=== PATIENT | female | born 1985 | race African-American/Black ===

== ENCOUNTER 2016-05-01 14:30 | Inpatient (IN) | payer BC ==
[~2016-05-01] VITALS: Ht 170.2 cm; Wt 90.7 kg
[~2016-05-01 14:30] MED LIST: AMLODIPINE-ATO1 EAC1 ORAL; NKM; NS Irrig 1000ml ONE; Sterile Water Irrig 1000ml IRRIG ONE
[2016-05-01] MEDS ORDERED: CHLOROPHYLL PO (14:48)
[2016-05-01] MEDS ORDERED: MULTIVITAMINS1 EAC2 ORAL (14:48)
--- NOTE | 2016-05-01 14:55 | Emergency Room Report ---
History of Present Illness General Chief Complaint: Hidradenitis Source: Patient Present Illness [facility] The patient is a 30-year-old female who presented after having increased wound drainage from her surgical site. The patient previous history of hidradenitis suppurativa patient was noted to have a prior surgery on April 03. Patient had noted increased drainage to the right side of her wound. The patient's left side of her wound subsequently open. Patient denied any fever. She reported having moderate pain. She had denies any recent antibiotic use. Allergies: Coded Allergies: FISH CONTAINING PRODUCTS (Verified Allergy, Intermediate, rash, 04/06/16) Uncoded Allergies: Tape (Adverse Reaction, Intermediate, Blisters , 05/01/16) Patient stated she gets Blisteres for any tape used for dressing. Patient History Past Medical History: see triage record Reviewed Nursing Documentation: PMH: Agreed, PSxH: Agreed Nursing Documentation-PMH Hx Cardiac Problems: No Hx Cancer: No Hx Gastrointestinal Problems: No Hx Neurological Problems: No Review of Systems All Other Systems: negative except mentioned in HPI Physical Exam Sp02 EP Interpretation: reviewed, normal General Appearance: normal inspection, well appearing, no apparent distress, alert, GCS 15, non-toxic Head: normocephalic, atraumatic ENT: normal ENT inspection, hearing grossly normal, normal voice Neck: normal inspection, full range of motion, supple, no bony tend Respiratory: normal inspection, lungs clear, normal breath sounds, no respiratory distress, no retraction, no wheezing Cardiovascular #1: regular rate, rhythm, no edema Gastrointestinal: normal inspection, normal bowel sounds, non tender, soft, no guarding, no hernia Genitourinary: no CVA tenderness Musculoskeletal: back normal, normal range of motion, swelling - left upper extremity Neurologic: normal inspection, alert, oriented x3, responsive, plastic mould maker III-XII nml as tested, speech normal Psychiatric: normal inspection, judgement/insight normal, mood/affect normal Skin: no rash, other - open wound to inguinal area Medical Decision Making Diagnostic Impression: Primary Impression: Hidradenitis suppurativa ER Course The patient presented for hidradenitis. Differential diagnosis included tape allergy, seroma, wound infection among others. Because of complexity of patient's case laboratory testing and imaging studies were ordered. The patient was noted to have an open wound which likely would require debridement and revision. The patient was noted to have a recent EKG and chest x-ray.Laboratory testing was unremarkable. The patient was discussed with who is covering for Dr. Gallardo for inpatient management. Labs Test 05/01/16 13:05 Urine HCG, Qualitative Negative Status: unchanged Disposition: ADMITTED INPATIENT Condition: Lemuel Deluna May 01, 2016 14:55
[2016-05-01] MEDS ORDERED: Morphine Sulfate 2mg/ml Inj IVP PRN (16:15)
--- NOTE | 2016-05-01 16:23 | History & Physical ---
History and Physical History & Physicial History of Present Illness Date patient seen: Apr 02, 2016 Reason for Hospitalization: Skin Rash/Abscess HPI 30 y/o AA female from [place] with hx of hidradenitis, presents with acute onset of pain in the L axillary region, not well controlled at home. No fevers/ chills. Failed multiple outpt abx. Has had breast aug in 2012 without complications. Does sessions with PT, no chest pain or dyspnea. No significant personal medical history She presents after having increased wound drainage from her L axillary surgical site. The patient previous history of hidradenitis suppurativa patient was noted to have a prior surgery on April 03. Patient had noted increased drainage to the right side of her wound. The patient's left side of her wound subsequently open. Patient denied any fever. She reported having moderate pain. She had denies any recent antibiotic use. Also of note, pt has not been moving her LUE and has developed swelling and pain. Allergies: Coded Allergies: No Known Allergies (Unverified , 04/02/16) History Provided By: Patient Healthcare decision maker Resuscitation status Advanced Directive on File Past Medical/Surgical History: (1) Axillary abscess Family History: Patient reports no known family medical history. Social History: (1) No significant social history ROS Review of Systems Constitutional: Denies: chills, fever, malaise, no symptoms, other, see HPI, sweats, weakness Eye: Denies: acuity changes, blurred vision, discharge, double vision, eye pain , no symptoms, nose congestion, nose pain, other, see HPI, tearing ENT: Denies: ear discharge, ear pain, hearing loss, mouth pain, nasal discharge , no symptoms, nose congestion, nose pain, other, see HPI, throat pain, throat swelling Respiratory: Denies: CONTE, cough, no symptoms, orthopnea, other, see HPI, shortness of breath, sputum, stridor, wheezing Cardiovascular: Denies: PND, chest pain, edema, no symptoms, other, palpitations, see HPI, syncope Gastrointestinal: Denies: abdominal pain, constipation, diarrhea, hematemesis, melena, nausea, no symptoms, other, see HPI, vomiting Genitourinary: Denies: discharge, dysuria, frequency, hematuria, incontinence, no symptoms, other, pain, retention, see HPI, urgency, vag bleed/dc Musculoskeletal: Reports: other - bilateral axillary pain Skin: Denies: change in color, change in hair/nails, dryness, lesions, no symptoms, other, rash, see HPI Psychiatric: Denies: HI, SI, anxiety, depressed feelings, emotional problems, hallucinations, no symptoms, other, prior hx, see HPI Neurological: Denies: dizziness, focal weakness, headache, no symptoms, numbness, other, paresthesia, see HPI, seizure, syncope, tingling, tremors Endocrine: Denies: excessive sweating, flushing, increased thirst, increased urine, intolerance to temperature, no symptoms, other, see HPI, unexplained weight loss Hematologic/Lymphatic: Denies: anemia, blood clots, diathesis, easy bleeding, easy bruising, no symptoms, other, see HPI, swollen glands Physical Exam Physical Exam Physical Exam Narrative General: alert, cooperative, no distress, appears stated age Head: normocephalic, without obvious abnormality, atraumatic Eyes: conjunctivae/corneas clear. PERRL, EOM's intact Throat: lips, mucosa, and tongue normal. MMM Neck: supple, symmetrical, trachea midline, and no JVD Lungs: clear to auscultation bilaterally Heart: regular rate and rhythm, S1, S2 normal, no murmur, click, rub or gallop Abdomen: soft, non-tender, non-distended, bowel sounds normal; no masses or organomegaly Extremities: extremities normal, atraumatic, no cyanosis; +edema of LUE Pulses: 2+ and symmetric Skin: skin color, texture, turgor normal; no rashes or lesions; axillary wound open with minimal drainage Neurologic: grossly normal, no focal deficits Last 24 Hour Vital Signs Date Time Temp Pulse Resp B/P Pulse Ox O2 Delivery O2 Flow Rate FiO2 04/02/16 17:06 98.2 83 19 116/80 98 Room Air Laboratory Tests Test 04/02/16 17:30 04/02/16 17:50 White Blood Count 8.8K/UL (4.8-10.8) Red Blood Count 4.46M/UL (4.20-5.40) Hemoglobin 13.0G/DL (12.0-16.0) Hematocrit 38.8% (37.0-47.0) Mean Corpuscular Volume 87FL (80-99) Mean Corpuscular Hemoglobin 29.1PG (27.0-31.0) Mean Corpuscular Hemoglobin Concent 33.4G/DL (32.0-36.0) Red Cell Distribution Width 12.7% (11.6-14.8) Platelet Count 346K/UL (150-450) Mean Platelet Volume 9.0FL (6.5-10.1) Neutrophils (%) (Auto) 45.1% (45.0-75.0) Lymphocytes (%) (Auto) 42.3% (20.0-45.0) Monocytes (%) (Auto) 6.6% (1.0-10.0) Eosinophils (%) (Auto) 4.5% (0.0-3.0) H Basophils (%) (Auto) 1.5% (0.0-2.0) Prothrombin Time Pending Prothromb Time International Ratio Pending Activated Partial Thromboplast Time Pending Sodium Level Pending Potassium Level Pending Chloride Level Pending Carbon Dioxide Level Pending Blood Urea Nitrogen Pending Creatinine Pending Estimat Glomerular Filtration Rate Pending Glucose Level Pending Calcium Level Pending Height (Feet): 5 Height (Inches): 7.00 Weight (Pounds): 208 Assessment/Plan Assessment/Plan Problem List: (1) Axillary abscess Assessment & Plan: - Admit to inpt - Pain control - Blood cx - Start IV abx -IVF - Supp care If patient is required to have surgery, based on the patient's medical history, and other available ancillary data, the patient is a LOW risk for an INTERMEDIATE risk procedure. Per the most recent ACC/AHA guidelines, the patient does not need any further cardiopulmonary testing prior to the procedure and there do not appear to be any clear medical contraindications to proceeding with the proposed procedure. (2) Lymphadema v dependent edema of LUE -Doppler u/s to r/o DVT -if neg, will use pati hose -heparin x 1 pre op resume pharm dvt ppx post op DVT ppx: SCD Farzana Kaplan M.D. May 01, 2016 16:23
[2016-05-01 16:25] LABS: MEAN CORPUSCULAR HEMOGLOBIN 27.3 PG (27.0-31.0); MEAN CORPUSCULAR HGB CONC 30.5 G/DL (32.0-36.0); MEAN CORPUSCULAR VOLUME 90 FL (80-99); MEAN PLATELET VOLUME 8.2 FL (6.5-10.1); MONOCYTES % (AUTO) 17.7 % (1.0-10.0); NEUTROPHILS % (AUTO) 47.3 % (45.0-75.0); PLATELET COUNT 397 K/UL (150-450); RED CELL DISTRIBUTION WIDTH 12.3 % (11.6-14.8); WHITE BLOOD COUNT 8.9 K/UL (4.8-10.8)
[2016-05-01 16:39] LABS: INR 1.1 (0.9-1.1); PROTHROMBIN TIME 11.5 SEC (9.30-11.50)
[2016-05-01 16:45] LABS: ANION GAP 15 (5-15); CALCIUM 9.4 mg/dL (8.6-10.2); CARBON DIOXIDE 27 mEQ/L (20-30); CHLORIDE 96 mEQ/L (98-107); CREATININE 0.8 mg/dL (0.5-0.9); GLOMERULAR FILTRATION RATE > 60 mL/min (>60); HEMOLYSIS 1; POTASSIUM 3.9 mEQ/L (3.4-4.9); SODIUM 138 mEQ/L (135-145)
[2016-05-01 18:25] VITALS: BP 131/90
[2016-05-01] MEDS ORDERED: D5 1/2NS 1,000 ML IV SCH (18:30)
[2016-05-01] MEDS ORDERED: ceFAZolin 1gm/50ml Premix 50 ML IV SCH (19:00)
[2016-05-01] MEDS: Norco 5mg/325mg tab ORAL SCH ×2 (20:13→21:00)
[2016-05-01] MEDS: Heparin 5000 units/ml inj SUBQ SCH (21:00)
[2016-05-01] MEDS: Docusate 100mg cap ORAL SCH (21:00)
[2016-05-02] VITALS (16 sets, daily range): BP systolic 114–155; BP diastolic 56–100
[2016-05-02] MEDS: Norco 5mg/325mg tab ORAL SCH ×6 (01:00→21:22)
[2016-05-02] MEDS: D5 1/2NS 1,000 ML IV SCH ×2 (06:39→21:20)
[2016-05-02] MEDS: Docusate 100mg cap ORAL SCH ×2 (09:00→21:22)
[2016-05-02] MEDS: Heparin 5000 units/ml inj SUBQ SCH ×2 (09:00→21:25)
[2016-05-02] MEDS ORDERED: EPINEPHrine 1mg/1ml Amp ONE (09:51)
[2016-05-02] MEDS ORDERED: Lidocaine 1% 10mg/ml/Epi 0.005mg/ml 30ml vial INJ ONE ×3 (09:51→14:28)
[2016-05-02] MEDS ORDERED: Bacitracin 50000 Units Vial ONE ×2 (09:51→13:16)
[2016-05-02] MEDS ORDERED: Propofol 10mg/ml 20ml IV ONE (11:21)
--- NOTE | 2016-05-02 12:06 | Pre-Procedure Note/Attestation ---
Pre-Procedure Note/Attestation Complete Prior to Procedure Planned Procedure: bilateral Procedure Narrative: Bilateral axillary debridement and flap closure Attestation I attest that I discussed the nature of the procedure; its benefits; risks and complications; and alternatives (and the risks and benefits of such alternatives ), prior to the procedure, with the patient (or the patient's legal sales representative printing). I attest that, if there was a reasonable possibility of needing a blood transfusion, the patient (or the patient's legal sales representative printing) was given the [facility] standardized written summary, pursuant to the [place] Blood Safety Act ([place] Health and Safety Code # 1645, as amended). I attest that I re-evaluated the patient just prior to the surgery and that there has been no change in the patient's H&P, except as documented below: XIMENA WEIR May 02, 2016 12:06
--- NOTE | 2016-05-02 12:07 | Operative Note - PDOC ---
Operative Note Operative Note Pre-op Diagnosis: Open bilateral axillary wounds Procedure: Debridement of bilateral axillary wounds and flap reclosure Post-op Diagnosis: same as pre-op Surgeon: Senthil Cement Finisher Apprentice: Daysi Specimen: yes Complications: none Condition: stable Estimated Blood Loss: minimal Drains: none Implant(s) used?: No XIMENA WEIR May 02, 2016 12:07
[2016-05-02] MEDS ORDERED: Rate Change PCA 1 Each MISC PRN ×2 (12:15→14:00)
[2016-05-02] MEDS ORDERED: DiphenhydrAMINE 50mg/ml Inj IVP PRN ×3 (12:15→14:00)
[2016-05-02] MEDS ORDERED: PCA HYDROmorphone 1mg/ml 30 ML IV PRN (12:15)
[2016-05-02] MEDS ORDERED: Zolpidem 5mg tab ORAL PRN (12:15)
--- NOTE | 2016-05-02 13:42 | Anethesia Preoperative Eval ---
Anesthesia Pre-op PMH/ROS General Date of Evaluation: May 02, 2016 Time of Evaluation: 12:38 Anesthesiologist: Nimco ASA Score: ASA 2 Mallampati Score Class I : Soft palate, uvula, fauces, pillars visible Class II: Soft palate, uvula, fauces visible Class III: Soft palate, base of uvula visible Class IV: Only hard plate visible Mallampati Classification: Class II Surgeon: Senthil Diagnosis: Recurreny axillary hydradenitis Surgical Procedure: Debridement of bilateral axillary wounds Anesthesia History: none Family History: no anesthesia problems Allergies: Coded Allergies: FISH CONTAINING PRODUCTS (Verified Allergy, Intermediate, rash, 04/06/16) Uncoded Allergies: Tape (Adverse Reaction, Intermediate, Blisters , 05/01/16) Patient stated she gets Blisteres for any tape used for dressing. Medications: see eMAR Past Medical History Cardiovascular: Denies: CAD, HTN, MT, arrhythmia, other, valve dz Pulmonary: Denies: COPD, MENDEZ, asthma, other Gastrointestinal/Genitourinary: Reports: GERD - mild, Denies: CRI, ESRD, other Neurologic/Psychiatric: Reports: depression/anxiety, Denies: CVA, TIA, dementia, other Endocrine: Denies: DM, hypothyroidism, other, steroids HEENT: Denies: [place] (L), [place] (R), cataract (L), cataract (R), glaucoma, other Hematology/Immune: Denies: DVT, anemia, bleeding disorder, other Musculoskeletal/Integumentary: Denies: DDD, DJD, OA, RA, edema, other Other: other - overweight PMH Narrative: as above PSxH Narrative: multiple Sx for HS treatment Anesthesia Pre-op Phys. Exam Physician Exam Last Vital Signs Date Time Temp Pulse Resp B/P Pulse Ox O2 Delivery O2 Flow Rate FiO2 05/02/16 08:00 97.2 92 18 115/73 96 Room Air Constitutional: NAD Neurologic: CN 2-12 intact Cardiovascular: RRR, no M/R/G Respiratory: CTA Gastrointestinal: S/NT/ND Airway Exam Mallampati Score: Class II MO: full Neck: Flexible ROM: full Teeth: intact Dentures: no lower, no upper Anesthesia Pre-op A/P Labs Hematology Test 05/01/16 16:00 White Blood Count 8.9 K/UL (4.8-10.8) Red Blood Count 4.20 M/UL (4.20-5.40) Hemoglobin 11.5 G/DL (12.0-16.0) L Hematocrit 37.6 % (37.0-47.0) Mean Corpuscular Volume 90 FL (80-99) Mean Corpuscular Hemoglobin 27.3 PG (27.0-31.0) Mean Corpuscular Hemoglobin Concent 30.5 G/DL (32.0-36.0) L Red Cell Distribution Width 12.3 % (11.6-14.8) Platelet Count 397 K/UL (150-450) Mean Platelet Volume 8.2 FL (6.5-10.1) Neutrophils (%) (Auto) 47.3 % (45.0-75.0) Lymphocytes (%) (Auto) 29.0 % (20.0-45.0) Monocytes (%) (Auto) 17.7 % (1.0-10.0) H Eosinophils (%) (Auto) 3.0 % (0.0-3.0) Basophils (%) (Auto) 3.0 % (0.0-2.0) H Coagulation Test 05/01/16 16:00 Prothrombin Time 11.5 SEC (9.30-11.50) Prothromb Time International Ratio 1.1 (0.9-1.1) Activated Partial Thromboplast Time 31 SEC (23-33) Chemistry Test 05/01/16 16:00 Sodium Level 138 mEQ/L (135-145) Potassium Level 3.9 mEQ/L (3.4-4.9) Chloride Level 96 mEQ/L (98-107) L Carbon Dioxide Level 27 mEQ/L (20-30) Anion Gap 15 (5-15) Blood Urea Nitrogen 6 mg/dL (7-23) L Creatinine 0.8 mg/dL (0.5-0.9) Estimat Glomerular Filtration Rate > 60 mL/min (>60) Glucose Level 96 mg/dL (74-106) Calcium Level 9.4 mg/dL (8.6-10.2) Risk Assessment & Plan Assessment: ASA 2 Plan: GA with LMA PONV prevention Status Change Before Surgery: No Pre-Antibiotics Drug: Ancef 1 gr. Given Within 1 Hr of Incision: Yes Time Given: 13:10 LIZ LAIRD M.D. May 02, 2016 13:42
[2016-05-02] MEDS ORDERED: LR 1000ml 1,000 ML IVLG SCH (13:43)
[2016-05-02] MEDS ORDERED: Morphine Sulfate 2mg/ml Inj IVP PRN ×2 (13:45→14:00)
[2016-05-02] MEDS ORDERED: Meperidine 25mg/ml Inj IV PRN (13:45)
[2016-05-02] MEDS ORDERED: Ketorolac 30mg Inj IV PRN (13:45)
[2016-05-02] MEDS ORDERED: Metoclopramide 10mg/2ml Inj IVP PRN (13:45)
[2016-05-02] MEDS ORDERED: Midazolam 2mg/2ml Inj IVP PRN (13:45)
[2016-05-02] MEDS ORDERED: fentaNYL 100 mcg/2 mL IV PRN (13:45)
[2016-05-02] MEDS ORDERED: Naloxone 0.4mg/ml Inj IVP PRN (14:00)
[2016-05-02] MEDS ORDERED: PCA shift volume MISC SCH (15:00)
--- NOTE | 2016-05-02 15:22 | Immediate Post-Op Evaluation ---
Immediate Post-Op Evalulation Immediate Post-Op Evalulation Procedure: Bilateral axillary wounds debridement Date of Evaluation: May 02, 2016 Time of Evaluation: 15:19 IV Fluids: 1100 Blood Products: none Estimated Blood Loss: 50 Urinary Output: n0ne Blood Pressure Systolic: 132 Blood Pressure Diastolic: 69 Pulse Rate: 88 Respiratory Rate: 20 O2 Sat by Pulse Oximetry: 99 Temperature (Fahrenheit): 97.2 Pain Score (1-10): 2 Nausea: No Vomiting: No Complications none Patient Status: reacts, patent, none Hydration Status: adequate LIZ LAIRD M.D. May 02, 2016 15:22
[2016-05-02] MEDS: PCA Morphine 1mg/ml 30 ML IV PRN (15:43)
[2016-05-02] MEDS: PCA shift volume MISC SCH ×2 (16:15→23:26)
[2016-05-02] MEDS ORDERED: D5 1/2NS 1000ml IV ONE (17:27)
[2016-05-02] MEDS ORDERED: Tubing IV Secondary IV ONE (17:27)
--- NOTE | 2016-05-02 19:18 | General Progress Note ---
Assessment/Plan Problem List: (1) Swelling of left upper extremity ICD Codes: M79.89 - Other specified soft tissue disorders SNOMED: 164103863 (2) Axillary abscess ICD Codes: L02.419 - Cutaneous abscess of limb, unspecified SNOMED: 80632112 (3) Hidradenitis suppurativa ICD Codes: L73.2 - Hidradenitis suppurativa SNOMED: 88899555 Status: progressing Assessment/Plan - Admit to inpt s/p Debridement of bilateral axillary wounds and flap reclosure, POD 0 - Pain control - Blood cx - Start IV abx -IVF - Supp care Subjective Date patient seen: May 02, 2016 Time patient seen: 19:17 Allergies: Coded Allergies: FISH CONTAINING PRODUCTS (Verified Allergy, Intermediate, rash, 04/06/16) Uncoded Allergies: Tape (Adverse Reaction, Intermediate, Blisters , 05/01/16) Patient stated she gets Blisteres for any tape used for dressing. Subjective no acute events o/n Objective Last 24 Hour Vital Signs Date Time Temp Pulse Resp B/P Pulse Ox O2 Delivery O2 Flow Rate FiO2 05/02/16 16:45 16 05/02/16 16:30 16 05/02/16 16:15 97.0 89 20 145/70 100 Nasal Cannula 2.0 05/02/16 16:15 20 05/02/16 16:00 88 20 143/71 100 Nasal Cannula 2.0 05/02/16 16:00 20 05/02/16 15:55 97.2 05/02/16 15:43 20 05/02/16 15:43 86 20 150/77 100 Simple Mask 8.0 05/02/16 15:24 86 20 143/64 100 Simple Mask 8.0 05/02/16 15:22 88 20 99 05/02/16 15:19 85 20 132/69 100 Simple Mask 8.0 05/02/16 15:14 97.8 86 20 134/65 100 Simple Mask 8.0 05/02/16 08:00 97.2 92 18 115/73 96 Room Air 05/02/16 00:00 97.7 83 16 123/58 99 Room Air 05/01/16 21:12 98.3 Intake and Output 05/01/16 05/02/16 19:00 07:00 # Voids 1 1 # Bowel Movements 1 Height (Feet): 5 Height (Inches): 7.00 Weight (Pounds): 200 Objective Physical Exam Physical Exam Narrative General: alert, cooperative, no distress, appears stated age Head: normocephalic, without obvious abnormality, atraumatic Eyes: conjunctivae/corneas clear. PERRL, EOM's intact Throat: lips, mucosa, and tongue normal. MMM Neck: supple, symmetrical, trachea midline, and no JVD Lungs: clear to auscultation bilaterally Heart: regular rate and rhythm, S1, S2 normal, no murmur, click, rub or gallop Abdomen: soft, non-tender, non-distended, bowel sounds normal; no masses or organomegaly Extremities: extremities normal, atraumatic, no cyanosis; +edema of LUE Pulses: 2+ and symmetric Skin: skin color, texture, turgor normal; no rashes or lesions; L axillary wound c/d/i Neurologic: grossly normal, no focal deficits Farzana Kaplan M.D. May 02, 2016 19:18
--- NOTE | 2016-05-02 20:17 | Consultation ---
DATE OF CONSULTATION: 05/02/2016 REASON FOR THE CONSULTATION: Postoperative wound dehiscence. HISTORY OF PRESENT ILLNESS: This is a 30-year-old, female, who is 3 weeks postoperative from bilateral axillary reconstruction who presented to the emergency room with pain and drainage and wound dehiscence in both axillae. She presented with no fevers but significant amount of pain and drainage. PAST MEDICAL HISTORY: Significant for hydradenitis. PAST SURGICAL HISTORY: Significant for recent debridement and reconstruction. PHYSICAL EXAMINATION: GENERAL: The patient is alert and oriented x3. HEART: Regular rate and rhythm. ABDOMEN: Soft, nontender, and nondistended. Examination the chest and trunk reveals intact thoracodorsal artery flaps however they had dehisced on both sides with open wounds around the flap and both axillae ASSESSMENT AND PLAN: This is a 30-year-old female, who is two weeks postoperative from bilateral axillary reconstruction with thoracodorsal artery flaps which have dehisced. She was admitted by the medical team, started on IV antibiotics, and will be taken to the operating room today for debridement and flap reelevation however given the level of the wound dehiscence and probable likely to have an infection or colonization of the wound, the wound will be debrided but not closed. We will plan on three to five days of dressing changes prior to definitive wound closure. She understands the risks and benefits of this plan and will be taken to the operating room today. Triny Ndiaye M.D. DR: Gustavo JOB#: [id number] CC:
[2016-05-02] MEDS ORDERED: Heparin 5000 units/ml inj SUBQ SCH (21:00)
--- NOTE | 2016-05-02 21:27 | Operative Note - Dictated ---
DATE OF OPERATION: 05/02/2016 PREOPERATIVE DIAGNOSIS: Bilateral axillary wound dehiscence. POSTOPERATIVE DIAGNOSIS: Bilateral axillary wound dehiscence. PROCEDURES: 1. Right axillary wound debridement. 2. Elevation of a posterior chest wall flap for staged closure of right axillary wound. 3. Elevation of a lateral chest wall flap for staged closure of the axillary wound. 4. Reelevation of previously raised thoracodorsal artery flap. 5. Left axillary wound debridement. 6. Elevation of a posterior chest wall flap for staged closure of left axillary wound. 7. Elevation of a lateral chest wall flap for staged closure of left axillary wound. 8. Reelevation of previously raised thoracodorsal artery flap. SURGEON: Triny Ndiaye M.D. SHIPPING WEIGHER: Maggie Tavarez M.D. ANESTHESIA: General. COMPLICATIONS: None. EBL: 50 mL. DRAINS: None. DISPOSITION: Stable to the recovery room. INDICATIONS FOR SURGERY: This is a 30-year-old female, who is three weeks postoperative from bilateral axillary reconstruction and was doing well. However, noticed that her wound had been slowly opening and ultimately had a significant dehiscence for which she presented to the emergency room. She was seen by me and I felt that she was an appropriate candidate for debridement, IV antibiotics, and staged closure of her wounds. She understood the risks and benefits of the plan and understood that she would require more than one operation to achieve resolution of her wound. DETAILS OF THE OPERATION: The patient was brought to the operating room and laid supine on the operating room table. Her chest and bilateral axilla were prepped and draped in a sterile and usual fashion. We first began on the left side. All the previous usha and sutures were removed. The wound was completely opened and we began by first debriding some of the scar tissue and nonviable granulation tissue in the wound bed. Once this was done, the wound was then copiously irrigated with pulse lavage. We noticed that there was significant amount of swelling and that needed to be reelevation of flaps to allow for staged closure of this wound. As such, we first began by elevating the posterior chest wall flap that was elevated at the level just over the latissimus muscle fascia with proximal and distal incisions made to fully mobilize the flap and this was based off of random perforators of the intercostal arteries. In a similar fashion, the lateral chest wall flap was elevated with proximal distal incisions made. This again was dissected over the latissimus muscle as well as over the ribs to fully mobilize the flap and allow for staged closure of the wound. The thoracodorsal artery flap that had been previously raised was brought down to the wound and so this had to be reelevated and re-released to allow for full mobility of the flap. With this done, the decision was made given the level of dehiscence and likely infection, but the wound was not amenable to definitive closure, despite the flap elevation. As such following copious irrigation and hemostasis, the wound was partially closed. The donor site for the thoracodorsal artery flap was closed with usha. The thoracodorsal artery flap itself was stapled to the edge of the medial arm and inferiorly was left open and packed with wet-to-dry dressing. In a similar fashion, the contralateral wound was addressed by debriding the edges of the wound as well as some of the nonviable tissues in the wound bed. The thoracodorsal artery flap had to be reelevated down to its base and in a similar fashion, was done on the contralateral side. A posterior chest wall flap was elevated at the level of the latissimus muscle fascia with proximal and distal incisions made to fully mobilize the flap. A lateral chest wall flap was also elevated at the level of the platysmas muscle and ribs to fully mobilize it and in a similar fashion to the contralateral side. Once hemostasis was achieved and copious irrigation was done, the wound was partially closed with usha within the inferior area and left open below the thoracodorsal artery flap. PLAN: The plan will be to bring the patient back to the operating room for an intraoperative dressing change in 48 hours followed by definitive closure of the wound on 05/07/2015. Triny Ndiaye M.D. DR: ARLEEN JOB#: [id number] CC:
[2016-05-03] VITALS: BP 110/65
[2016-05-03] MEDS: Norco 5mg/325mg tab ORAL SCH ×6 (00:08→21:00)
[2016-05-03 04:00] VITALS: BP 129/72
[2016-05-03] MEDS: D5 1/2NS 1,000 ML IV SCH (04:50)
[2016-05-03] MEDS: PCA shift volume MISC SCH ×3 (07:13→23:00)
[2016-05-03 08:00] VITALS: BP 140/76
--- NOTE | 2016-05-03 08:33 | General Progress Note ---
Progress Note Progress Note Pt seen and examined. POD # 1 from debridement and partial reclosure of axillary wounds. Doing well. AVSS. Cultures sent from OR. Dressings intact. Plan for dressing changes in OR in AM. Plan: 1. NPO after MN and consent. 2. Will give the wounds more time before definitive closure on Saturday. Ximena Weir M.D. XIMENA WEIR May 03, 2016 08:33
--- NOTE | 2016-05-03 09:16 | 48 Hour Post Anesthesia Eval ---
Post Anesthesia Evaluation Procedure: Bilateral axillary wounds debridement Date of Evaluation: May 03, 2016 Time of Evaluation: 06:36 Blood Pressure Systolic: 129 0: 72 Pulse Rate: 95 Respiratory Rate: 16 Temperature (Fahrenheit): 98.6 O2 Sat by Pulse Oximetry: 98 Airway: patent Nausea: No Vomiting: No Pain Intensity: 2 Hydration Status: adequate Cardiopulmonary Status: Stable Mental Status/LOC: patient returned to baseline Follow-up Care/Observations: 0 Post-Anesthesia Complications: 0 Follow-up care needed: N/A Kyler Lane MD May 03, 2016 09:16
[2016-05-03] MEDS: Docusate 100mg cap ORAL SCH ×2 (09:25→20:40)
[2016-05-03] MEDS: Heparin 5000 units/ml inj SUBQ SCH ×2 (09:37→20:42)
[2016-05-03 11:22] VITALS: BP 127/56
[2016-05-03 16:00] VITALS: BP 153/109
--- NOTE | 2016-05-03 19:36 | General Progress Note ---
Assessment/Plan Problem List: (1) Swelling of left upper extremity ICD Codes: M79.89 - Other specified soft tissue disorders SNOMED: 285281676 (2) Axillary abscess ICD Codes: L02.419 - Cutaneous abscess of limb, unspecified SNOMED: 26681101 (3) Hidradenitis suppurativa ICD Codes: L73.2 - Hidradenitis suppurativa SNOMED: 46053845 Assessment/Plan - Admit to inpt s/p Debridement of bilateral axillary wounds and flap reclosure, POD 1 - Pain control - Blood cx - Start IV abx -IVF - Supp care Subjective Allergies: Coded Allergies: FISH CONTAINING PRODUCTS (Verified Allergy, Intermediate, rash, 04/06/16) Uncoded Allergies: Tape (Adverse Reaction, Intermediate, Blisters , 05/01/16) Patient stated she gets Blisteres for any tape used for dressing. Subjective no acute events o/n Objective Last 24 Hour Vital Signs Date Time Temp Pulse Resp B/P Pulse Ox O2 Delivery O2 Flow Rate FiO2 05/03/16 12:10 98.6 05/03/16 12:00 18 05/03/16 11:22 113 18 127/56 94 Room Air 05/03/16 09:16 95 16 98 05/03/16 08:00 18 05/03/16 08:00 99.5 112 18 140/76 96 Room Air 05/03/16 04:00 18 05/03/16 04:00 97.4 95 18 129/72 98 Room Air 05/03/16 00:00 18 05/03/16 00:00 97.8 98 18 110/65 100 Room Air 05/02/16 20:30 98.2 106 16 118/67 100 Room Air 05/02/16 20:00 16 Intake and Output 05/02/16 05/03/16 19:00 07:00 Intake Total 1100 ml 960 ml Output Total 50 ml 400 ml Balance 1050 ml 560 ml Intake Oral 360 ml IV Total 1100 ml 600 ml Output Urine Total 400 ml Estimated Blood Loss 50 ml # Voids 1 Height (Feet): 5 Height (Inches): 7.00 Weight (Pounds): 200 Objective Physical Exam Physical Exam Narrative General: alert, cooperative, no distress, appears stated age Head: normocephalic, without obvious abnormality, atraumatic Eyes: conjunctivae/corneas clear. PERRL, EOM's intact Throat: lips, mucosa, and tongue normal. MMM Neck: supple, symmetrical, trachea midline, and no JVD Lungs: clear to auscultation bilaterally Heart: regular rate and rhythm, S1, S2 normal, no murmur, click, rub or gallop Abdomen: soft, non-tender, non-distended, bowel sounds normal; no masses or organomegaly Extremities: extremities normal, atraumatic, no cyanosis; +edema of LUE Pulses: 2+ and symmetric Skin: skin color, texture, turgor normal; no rashes or lesions; L axillary wound c/d/i Neurologic: grossly normal, no focal deficits Farzana Kaplan M.D. May 03, 2016 19:36
[2016-05-03 20:43] VITALS: BP 119/75
[2016-05-03 22:56] LABS: APPEARANCE,URINE CLEAR; KETONES,URINE NEGATIVE (NEGATIVE); LEUKOCYTE ESTERASE ,URINE 3+ (NEGATIVE); NITRITE,URINE NEGATIVE (NEGATIVE); PH,URINE 7 (4.5-8.0); PROTEIN,URINE NEGATIVE (NEGATIVE); UROBILINOGEN,URINE NORMAL MG/DL (0.0-1.0)
[2016-05-03 23:04] LABS: RBC,URINE 0-2 /HPF (0 - 2); SQUAMOUS EPITHELIAL CELL,UR FEW /LPF (NONE/OCC)
[2016-05-03 23:05] LABS: BACTERIA,URINE OCCASIONAL /HPF
[2016-05-04] VITALS (14 sets, daily range): BP systolic 106–148; BP diastolic 64–75
[2016-05-04] MEDS: Norco 5mg/325mg tab ORAL SCH ×4 (01:00→12:33)
[2016-05-04] MEDS: PCA shift volume MISC SCH ×3 (07:00→23:29)
[2016-05-04] MEDS: Heparin 5000 units/ml inj SUBQ SCH ×2 (08:18→20:33)
[2016-05-04] MEDS: Docusate 100mg cap ORAL SCH (08:18)
[2016-05-04] MEDS: PCA Morphine 1mg/ml 30 ML IV PRN ×2 (08:39→14:06)
[2016-05-04] MEDS ORDERED: Bacitracin 50000 Units Vial ONE (09:56)
--- NOTE | 2016-05-04 09:56 | General Progress Note ---
Assessment/Plan Problem List: (1) Swelling of left upper extremity ICD Codes: M79.89 - Other specified soft tissue disorders SNOMED: 580604995 (2) Axillary abscess ICD Codes: L02.419 - Cutaneous abscess of limb, unspecified SNOMED: 28914837 (3) Hidradenitis suppurativa ICD Codes: L73.2 - Hidradenitis suppurativa SNOMED: 93626693 Assessment/Plan - Admit to inpt s/p Debridement of bilateral axillary wounds and flap reclosure, POD 2 -to OR today for dressing change - Pain control - Blood cx - Start IV abx -IVF - Supp care Subjective Date patient seen: May 04, 2016 Time patient seen: 09:55 Allergies: Coded Allergies: FISH CONTAINING PRODUCTS (Verified Allergy, Intermediate, rash, 04/06/16) Uncoded Allergies: Tape (Adverse Reaction, Intermediate, Blisters , 05/01/16) Patient stated she gets Blisteres for any tape used for dressing. Subjective pt with subjective fever Objective Last 24 Hour Vital Signs Date Time Temp Pulse Resp B/P Pulse Ox O2 Delivery O2 Flow Rate FiO2 05/04/16 09:09 98.2 05/04/16 08:00 98.4 113 18 120/67 95 Room Air 05/04/16 08:00 19 05/04/16 04:30 98.2 94 18 106/64 94 Room Air 05/04/16 04:00 19 05/04/16 00:00 19 05/04/16 00:00 98.1 101 18 121/68 98 Room Air 05/03/16 20:43 99.7 109 18 119/75 98 Room Air 05/03/16 20:00 19 05/03/16 19:09 99.7 05/03/16 16:00 102.0 121 20 153/109 96 Room Air 05/03/16 16:00 18 05/03/16 12:10 98.6 05/03/16 12:00 18 05/03/16 11:22 113 18 127/56 94 Room Air Intake and Output 05/03/16 05/04/16 19:00 07:00 Intake Total 180 ml 240 ml Output Total 900 ml Balance 180 ml -660 ml Intake Oral 180 ml 240 ml Other 0 ml Output Urine Total 900 ml # Voids 1 3 Laboratory Tests 1/5/17 22:00: Urine Color Pale yellow, Urine Appearance Clear, Urine pH 7, Urine Specific [place] 1.005, Urine Protein Negative, Urine Glucose (UA) Negative, Urine Ketones Negative, Urine Occult Blood Negative, Urine Nitrite Negative, Urine Bilirubin Negative, Urine Urobilinogen Normal, Urine Leukocyte Esterase 3+H, Urine RBC 0-2, Urine WBC 5-10H, Urine Squamous Epithelial Cells Few, Urine Bacteria Occasional Height (Feet): 5 Height (Inches): 7.00 Weight (Pounds): 200 Objective Physical Exam Physical Exam Narrative General: alert, cooperative, no distress, appears stated age Head: normocephalic, without obvious abnormality, atraumatic Eyes: conjunctivae/corneas clear. PERRL, EOM's intact Throat: lips, mucosa, and tongue normal. MMM Neck: supple, symmetrical, trachea midline, and no JVD Lungs: clear to auscultation bilaterally Heart: regular rate and rhythm, S1, S2 normal, no murmur, click, rub or gallop Abdomen: soft, non-tender, non-distended, bowel sounds normal; no masses or organomegaly Extremities: extremities normal, atraumatic, no cyanosis; +edema of LUE Pulses: 2+ and symmetric Skin: skin color, texture, turgor normal; no rashes or lesions; L axillary wound c/d/i Neurologic: grossly normal, no focal deficits Farzana Kaplan M.D. May 04, 2016 09:56
[2016-05-04] MEDS ORDERED: Sterile Water Irrig 1000ml IRRIG ONE (11:45)
[2016-05-04] MEDS ORDERED: LR 1000ml ONE (11:45)
[2016-05-04] MEDS ORDERED: NS Irrig 1000ml ONE (11:45)
[2016-05-04] MEDS ORDERED: Midazolam 2mg/2ml Inj ONE (11:45)
[2016-05-04] MEDS ORDERED: Ketorolac 30mg Inj ONE (11:45)
[2016-05-04] MEDS ORDERED: Propofol 10mg/ml 20ml IV ONE (11:45)
[2016-05-04] MEDS ORDERED: fentaNYL 100 mcg/2 mL IV ONE (11:45)
--- NOTE | 2016-05-04 11:53 | Pre-Procedure Note/Attestation ---
Pre-Procedure Note/Attestation Complete Prior to Procedure Planned Procedure: bilateral Procedure Narrative: Bilateral axillary wound washout and dressings changes Indications for Procedure Pre-Operative Diagnosis: Open bilateral axillary wounds Attestation I attest that I discussed the nature of the procedure; its benefits; risks and complications; and alternatives (and the risks and benefits of such alternatives ), prior to the procedure, with the patient (or the patient's legal arborist representative). I attest that, if there was a reasonable possibility of needing a blood transfusion, the patient (or the patient's legal arborist representative) was given the [facility] standardized written summary, pursuant to the [place]ito [place] Blood Safety Act ([place] Health and Safety Code # 1645, as amended). I attest that I re-evaluated the patient just prior to the surgery and that there has been no change in the patient's H&P, except as documented below: XIMENA WEIR May 04, 2016 11:53
--- NOTE | 2016-05-04 11:54 | Operative Note - PDOC ---
Operative Note Operative Note Pre-op Diagnosis: Open bilateral axillary wounds Procedure: Washout of bilateral axillary wounds Post-op Diagnosis: same as pre-op Surgeon: Senthil Wardrobe Image Consultant: Daysi Specimen: yes Complications: none Condition: stable Estimated Blood Loss: minimal Drains: none Implant(s) used?: No XIMENA WEIR May 04, 2016 11:54
[2016-05-04] MEDS ORDERED: Rate Change PCA 1 Each MISC PRN ×2 (12:00→13:00)
[2016-05-04] MEDS ORDERED: PCA Morphine 1mg/ml 30 ML IV PRN (12:00)
[2016-05-04] MEDS ORDERED: Zolpidem 5mg tab ORAL PRN (12:00)
[2016-05-04] MEDS ORDERED: LR 1000ml 1,000 ML IVLG SCH (12:53)
[2016-05-04] MEDS ORDERED: Meperidine 25mg/ml Inj IV PRN (13:00)
[2016-05-04] MEDS ORDERED: Metoclopramide 10mg/2ml Inj IVP PRN (13:00)
[2016-05-04] MEDS ORDERED: fentaNYL 100 mcg/2 mL IV PRN (13:00)
[2016-05-04] MEDS ORDERED: Midazolam 2mg/2ml Inj IVP PRN (13:00)
[2016-05-04] MEDS ORDERED: Hydromorphone 0.5mg/0.5ml inj IVP PRN (13:00)
[2016-05-04] MEDS ORDERED: Naloxone 0.4mg/ml Inj IVP PRN (13:00)
[2016-05-04] MEDS ORDERED: DiphenhydrAMINE 50mg/ml Inj IVP PRN ×2 (13:00)
[2016-05-04] MEDS ORDERED: LORazepam 1mg tab ORAL PRN (13:00)
[2016-05-04] MEDS ORDERED: Ketorolac 30mg Inj IV PRN (13:00)
[2016-05-04] MEDS ORDERED: Morphine Sulfate 2mg/ml Inj IVP PRN (13:00)
--- NOTE | 2016-05-04 14:32 | Anethesia Preoperative Eval ---
Anesthesia Pre-op PMH/ROS General Date of Evaluation: May 04, 2016 Time of Evaluation: 11:44 Anesthesiologist: Nimco ASA Score: ASA 2 Mallampati Score Class I : Soft palate, uvula, fauces, pillars visible Class II: Soft palate, uvula, fauces visible Class III: Soft palate, base of uvula visible Class IV: Only hard plate visible Mallampati Classification: Class II Surgeon: Senthil Diagnosis: Recurrent Hydradenitis Surgical Procedure: Debridement and dressing change on bilateral axillary wounds Anesthesia History: none Family History: no anesthesia problems Allergies: Coded Allergies: FISH CONTAINING PRODUCTS (Verified Allergy, Intermediate, rash, 04/06/16) Uncoded Allergies: Tape (Adverse Reaction, Intermediate, Blisters , 05/01/16) Patient stated she gets Blisteres for any tape used for dressing. Past Medical History Cardiovascular: Denies: CAD, HTN, [place], arrhythmia, other, valve dz Pulmonary: Denies: COPD, MENDEZ, asthma, other Gastrointestinal/Genitourinary: Denies: CRI, ESRD, GERD, other Neurologic/Psychiatric: Reports: depression/anxiety, Denies: CVA, TIA, dementia, other Endocrine: Denies: DM, hypothyroidism, other, steroids HEENT: Denies: [place] (L), KO[place] (R), cataract (L), cataract (R), glaucoma, other Hematology/Immune: Denies: DVT, anemia, bleeding disorder, other Musculoskeletal/Integumentary: Reports: other - recurrent HS, Denies: DDD, DJD, OA, RA, edema Other: other - over weight PMH Narrative: as above PSxH Narrative: Multiple Sx for HS treatment Anesthesia Pre-op Phys. Exam Physician Exam Last Vital Signs Date Time Temp Pulse Resp B/P Pulse Ox O2 Delivery O2 Flow Rate FiO2 05/04/16 14:21 20 05/04/16 14:20 86 131/69 99 Nasal Cannula 2.0 05/04/16 13:19 97.2 Constitutional: NAD Neurologic: CN 2-12 intact Cardiovascular: RRR, no M/R/G Respiratory: CTA Gastrointestinal: S/NT/ND Airway Exam Mallampati Score: Class II MO: full Neck: flexible ROM: full Teeth: intact Dentures: no lower, no upper Anesthesia Pre-op A/P Labs see chart Risk Assessment & Plan Assessment: ASA 2 Plan: GA with LMA Status Change Before Surgery: No Pre-Antibiotics Drug: Ancef 2 gr. Given Within 1 Hr of Incision: Yes Time Given: 13:18 LIZ LAIRD M.D. May 04, 2016 14:32
--- NOTE | 2016-05-04 14:35 | Immediate Post-Op Evaluation ---
Immediate Post-Op Evalulation Immediate Post-Op Evalulation Procedure: Debridement and dressing change on bilateral axillary wounds Date of Evaluation: May 04, 2016 Time of Evaluation: 13:24 IV Fluids: 400 Blood Products: none Estimated Blood Loss: min Urinary Output: none Blood Pressure Systolic: 118 Blood Pressure Diastolic: 69 Pulse Rate: 68 Respiratory Rate: 22 O2 Sat by Pulse Oximetry: 99 Temperature (Fahrenheit): 97.8 Pain Score (1-10): 2 Complications none Patient Status: reacts, patent, none Hydration Status: adequate LIZ LAIRD M.D. May 04, 2016 14:35
[2016-05-04] MEDS ORDERED: PCA shift volume MISC SCH (15:30)
--- NOTE | 2016-05-04 16:36 | 48 Hour Post Anesthesia Eval ---
Post Anesthesia Evaluation Procedure: Debridement and dressing change on bilateral axillary wounds Date of Evaluation: May 04, 2016 Time of Evaluation: 16:34 Blood Pressure Systolic: 130 0: 69 Pulse Rate: 88 Respiratory Rate: 20 Temperature (Fahrenheit): 98.6 O2 Sat by Pulse Oximetry: 99 Airway: patent Nausea: No Vomiting: No Pain Intensity: 2 Hydration Status: adequate Cardiopulmonary Status: Stable Mental Status/LOC: patient returned to baseline Follow-up Care/Observations: 0 Post-Anesthesia Complications: 0 Follow-up care needed: N/A Kyler Lane MD May 04, 2016 16:36
[2016-05-04] MEDS: Pericolace tab ORAL SCH (17:37)
--- NOTE | 2016-05-04 18:58 | Operative Note - Dictated ---
DATE OF OPERATION: 05/04/2016 PREOPERATIVE DIAGNOSIS: Bilateral open axillary wounds. POSTOPERATIVE DIAGNOSIS: Bilateral open axillary wounds. PROCEDURES: 1. Bilateral axillary wound washout with pulse lavage. 2. Debridement of bilateral axillary wound. 3. Re-elevation of left lateral chest wall flap for partial closure of left axillary wound. SURGEON: Triny Ndiaye M.D. CAREER ADVISOR: Maggie Tavarez M.D. ANESTHESIA: General. COMPLICATIONS: None. DRAINS: None. DISPOSITION: Stable to the recovery room. INDICATIONS FOR SURGERY: This is a 30-year-old female, now who is postoperative day # 2 from debridement of bilateral axillary wounds of flap, re-inset with an open wound who is coming back to the operating room for dressing change under anesthesia with possible partial reclosures. She understood the risks and benefits of surgery and agreed to proceed. DETAILS OF THE OPERATION: The patient was brought to the operating room and laid supine on the operating table. Her bilateral axillary wounds were prepped and draped in a sterile and sterile usual fashion. We began the left side by first performing pulse lavage irrigation to the wound bed and we noted that there was no evidence of purulent drainage. The wound and the flap were healthy, however, in anticipation of eventual closure of the wound in the 72 hours, we did decide to readvance the lateral chest wall flap to appoint closer to the thoracodorsal artery flap itself and in so doing, we re-elevated the chest wall flap and tacked it down to the base of the thoracodorsal artery flap thereby reducing the dimension of the wound. This was secured in place using 2-0 Prolene sutures. The remainders of the wound that was inferior to the thoracodorsal artery flap in the left axilla was left open and this was packed. Similarly, the contralateral wound was approached with pulse lavage irrigation with the partial debridement of the thoracodorsal artery flap and this wound was smaller than the contralateral left side and following the irrigation and debridement, the wound was packed and this patient has adhesive allergy as such no tape was applied to the dressings. We wrapped her chest with a Coban dressing. The patient tolerated the procedure well. She will be brought back to the operating room in 72 hours, which is this Saturday for definitive wound closure. Triny Ndiaye M.D. DR: AYANNA JOB#: [id number] CC:
[2016-05-05] VITALS: BP 112/58
[2016-05-05] MEDS: PCA shift volume MISC SCH ×3 (07:00→23:00)
[2016-05-05 08:00] VITALS: BP 116/75
[2016-05-05] MEDS: Pericolace tab ORAL SCH ×2 (09:18→17:48)
[2016-05-05] MEDS: Heparin 5000 units/ml inj SUBQ SCH ×2 (09:19→21:00)
--- NOTE | 2016-05-05 09:48 | General Progress Note ---
Progress Note Progress Note Pt seen and examined. POD #1 from washout of wounds and flap partial reclosure. Doing well and pain is well controlled. Axillary wound cultures grew out Ecoli. Plan to OR on Saturday for wound closure. XIMENA Rojas MD May 05, 2016 09:48
--- NOTE | 2016-05-05 10:07 | General Progress Note ---
Assessment/Plan Problem List: (1) Swelling of left upper extremity ICD Codes: M79.89 - Other specified soft tissue disorders SNOMED: 839309225 (2) Axillary abscess ICD Codes: L02.419 - Cutaneous abscess of limb, unspecified SNOMED: 33337832 (3) Hidradenitis suppurativa ICD Codes: L73.2 - Hidradenitis suppurativa SNOMED: 81854931 Assessment/Plan - Admit to inpt s/p Debridement of bilateral axillary wounds and flap reclosure, POD 3 -s/p dressing change 05/04/16 - Pain control - Blood cx ntd -tylenol -wound cx with GNR - Start IV abx; Ceftriaxone -dc IVF - Supp care Subjective Date patient seen: May 05, 2016 Time patient seen: 10:05 Allergies: Coded Allergies: FISH CONTAINING PRODUCTS (Verified Allergy, Intermediate, rash, 04/06/16) Uncoded Allergies: Tape (Adverse Reaction, Intermediate, Blisters , 05/01/16) Patient stated she gets Blisteres for any tape used for dressing. Subjective no acute events o/n Objective Last 24 Hour Vital Signs Date Time Temp Pulse Resp B/P Pulse Ox O2 Delivery O2 Flow Rate FiO2 05/05/16 04:00 18 05/05/16 00:00 18 05/05/16 00:00 98.1 107 18 112/58 96 Nasal Cannula 2.0 05/04/16 20:00 20 05/04/16 20:00 100.6 117 18 117/67 99 Nasal Cannula 2.0 05/04/16 18:14 97.7 97 20 127/64 100 Nasal Cannula 2.0 05/04/16 16:36 88 20 99 05/04/16 16:00 20 05/04/16 16:00 97.7 97 20 127/64 100 Nasal Cannula 2.0 05/04/16 15:00 97.8 05/04/16 14:45 20 05/04/16 14:35 68 22 99 05/04/16 14:27 98.6 88 20 130/69 99 Nasal Cannula 2.0 05/04/16 14:21 20 05/04/16 14:20 86 20 131/69 99 Nasal Cannula 2.0 05/04/16 14:06 20 05/04/16 14:06 86 20 133/69 99 Nasal Cannula 2.0 05/04/16 14:00 85 20 137/74 99 Nasal Cannula 2.0 05/04/16 13:45 91 20 148/75 99 Simple Mask 8.0 05/04/16 13:29 91 20 137/70 99 Simple Mask 8.0 05/04/16 13:24 90 20 133/72 99 Simple Mask 8.0 05/04/16 13:19 97.2 87 20 112/64 99 Simple Mask 8.0 Intake and Output 05/04/16 05/05/16 19:00 07:00 Intake Total 1200 ml 580 ml Balance 1200 ml 580 ml Intake Oral 300 ml 480 ml IV Total 900 ml 100 ml # Voids 2 1 Height (Feet): 5 Height (Inches): 7.00 Weight (Pounds): 200 Objective Physical Exam Physical Exam Narrative General: alert, cooperative, no distress, appears stated age Head: normocephalic, without obvious abnormality, atraumatic Eyes: conjunctivae/corneas clear. PERRL, EOM's intact Throat: lips, mucosa, and tongue normal. MMM Neck: supple, symmetrical, trachea midline, and no JVD Lungs: clear to auscultation bilaterally Heart: regular rate and rhythm, S1, S2 normal, no murmur, click, rub or gallop Abdomen: soft, non-tender, non-distended, bowel sounds normal; no masses or organomegaly Extremities: extremities normal, atraumatic, no cyanosis; +edema of LUE Pulses: 2+ and symmetric Skin: skin color, texture, turgor normal; no rashes or lesions; L axillary wound c/d/i Neurologic: grossly normal, no focal deficits Farzana Kaplan M.D. May 05, 2016 10:07
[2016-05-05 12:10] VITALS: BP 125/73
[2016-05-05] MEDS: cefTRIAXone 1 GM in D5W 50 ML IVPB SCH (13:10)
[2016-05-05] MEDS: PCA Morphine 1mg/ml 30 ML IV PRN (15:58)
[2016-05-05 16:15] VITALS: BP 112/66
[2016-05-05 20:00] VITALS: BP 130/76
[2016-05-06] VITALS: BP 117/63
[2016-05-06 04:00] VITALS: BP 118/71
[2016-05-06] MEDS: PCA shift volume MISC SCH ×2 (07:00→23:12)
[2016-05-06 08:12] VITALS: BP 126/66
[2016-05-06] MEDS: Pericolace tab ORAL SCH ×2 (10:51→16:27)
[2016-05-06] MEDS: Heparin 5000 units/ml inj SUBQ SCH ×2 (10:54→20:51)
[2016-05-06] MEDS: cefTRIAXone 1 GM in D5W 50 ML IVPB SCH (10:55)
[2016-05-06] MEDS ORDERED: Naloxone 0.4mg/ml Inj IVP PRN ×2 (15:21→17:00)
[2016-05-06] MEDS ORDERED: DiphenhydrAMINE 50mg/ml Inj IVP PRN ×2 (15:45→19:00)
[2016-05-06] MEDS ORDERED: LORazepam 1mg tab ORAL PRN ×2 (15:45→17:00)
[2016-05-06 15:51] VITALS: BP 124/71
[2016-05-06] MEDS ORDERED: Tubing IV Secondary IV ONE (16:53)
[2016-05-06] MEDS ORDERED: PCA Morphine 1mg/ml 30 ML IV PRN (17:00)
[2016-05-06] MEDS ORDERED: Morphine Sulfate 2mg/ml Inj IVP PRN (17:00)
[2016-05-06] MEDS ORDERED: Rate Change PCA 1 Each MISC PRN (17:00)
[2016-05-06] MEDS ORDERED: Morphine Sulfate 4mg/ml Inj SUBQ PRN (17:00)
[2016-05-06 20:24] VITALS: BP 120/87
[2016-05-06] MEDS ORDERED: PCA shift volume MISC SCH (23:00)
[2016-05-07] VITALS (15 sets, daily range): BP systolic 131–163; BP diastolic 56–102
[2016-05-07] MEDS: PCA shift volume MISC SCH ×3 (07:16→23:00)
[2016-05-07] MEDS: Heparin 5000 units/ml inj SUBQ SCH ×2 (08:39→21:00)
[2016-05-07] MEDS: Pericolace tab ORAL SCH (08:39)
[2016-05-07] MEDS ORDERED: Bacitracin 50000 Units Vial ONE (09:07)
[2016-05-07] MEDS ORDERED: Lidocaine 1% 10mg/ml/Epi 0.005mg/ml 30ml vial INJ ONE (09:07)
--- NOTE | 2016-05-07 09:24 | Pre-Procedure Note/Attestation ---
Pre-Procedure Note/Attestation Complete Prior to Procedure Planned Procedure: bilateral Procedure Narrative: Bilateral axillary wound closure Indications for Procedure Pre-Operative Diagnosis: Open bilateral axillary wounds Attestation I attest that I discussed the nature of the procedure; its benefits; risks and complications; and alternatives (and the risks and benefits of such alternatives ), prior to the procedure, with the patient (or the patient's legal medical office representative). I attest that, if there was a reasonable possibility of needing a blood transfusion, the patient (or the patient's legal medical office representative) was given the [facility] standardized written summary, pursuant to the [place] Blood Safety Act ([place] Health and Safety Code # 1645, as amended). I attest that I re-evaluated the patient just prior to the surgery and that there has been no change in the patient's H&P, except as documented below: XIMENA WEIR May 07, 2016 09:24
--- NOTE | 2016-05-07 09:25 | Operative Note - PDOC ---
Operative Note Operative Note Pre-op Diagnosis: Open bilateral axillary wounds Procedure: Closure of bilateral axillary wounds Post-op Diagnosis: same as pre-op Surgeon: Senthil Hot Dog Vender: Tiffanie Anesthesia: general Specimen: yes Complications: none Condition: stable Estimated Blood Loss: minimal Drains: ANITA Implant(s) used?: No XIMENA WEIR May 07, 2016 09:24
[2016-05-07] MEDS ORDERED: cefOXitin 1gm Inj ONE ×2 (09:44→09:59)
[2016-05-07] MEDS ORDERED: fentaNYL 100 mcg/2 mL IV ONE (10:00)
[2016-05-07] MEDS ORDERED: Ketorolac 30mg Inj ONE (10:00)
[2016-05-07] MEDS ORDERED: Succinylcholine 20mg/ml 10ml vial ONE (10:00)
[2016-05-07] MEDS ORDERED: LR 1000ml ONE (10:00)
[2016-05-07] MEDS ORDERED: Neostigmine 1mg/ml 10ml Inj ONE (10:00)
[2016-05-07] MEDS ORDERED: Zemuron 50mg/5ml Inj IV ONE (10:00)
[2016-05-07] MEDS ORDERED: Propofol 10mg/ml 20ml IV ONE (10:00)
[2016-05-07] MEDS ORDERED: Morphine Sulfate 10mg/ml Inj ONE (10:00)
[2016-05-07] MEDS ORDERED: Glycopyrrolate 0.2mg/ml 1ml Vial ONE (10:00)
[2016-05-07] MEDS ORDERED: Midazolam 2mg/2ml Inj ONE (10:00)
[2016-05-07] MEDS ORDERED: NS Irrig 1000ml IRRIG ONE (10:05)
[2016-05-07] MEDS ORDERED: Rate Change PCA 1 Each MISC PRN (10:30)
[2016-05-07] MEDS: cefTRIAXone 1 GM in D5W 50 ML IVPB SCH (11:00)
[2016-05-07] MEDS ORDERED: LR 1000ml 1,000 ML IVLG SCH (12:48)
--- NOTE | 2016-05-07 12:48 | Anethesia Preoperative Eval ---
Anesthesia Pre-op PMH/ROS General Date of Evaluation: May 07, 2016 Time of Evaluation: 09:48 Anesthesiologist: Nimco ASA Score: ASA 2 Mallampati Score Class I : Soft palate, uvula, fauces, pillars visible Class II: Soft palate, uvula, fauces visible Class III: Soft palate, base of uvula visible Class IV: Only hard plate visible Mallampati Classification: Class II Surgeon: Senthil Diagnosis: Recurrent hydradenitis Surgical Procedure: Bilateral axillary wounds closure Anesthesia History: none Family History: no anesthesia problems Allergies: Coded Allergies: FISH CONTAINING PRODUCTS (Verified Allergy, Intermediate, rash, 04/06/16) Uncoded Allergies: Tape (Adverse Reaction, Intermediate, Blisters , 05/01/16) Patient stated she gets Blisteres for any tape used for dressing. Medications: see eMAR Past Medical History Cardiovascular: Denies: CAD, HTN, [place], arrhythmia, other, valve dz Pulmonary: Denies: COPD, MENDEZ, asthma, other Gastrointestinal/Genitourinary: Reports: GERD, Denies: CRI, ESRD, other Neurologic/Psychiatric: Reports: depression/anxiety, Denies: CVA, TIA, dementia, other Endocrine: Denies: DM, hypothyroidism, other, steroids HEENT: Denies: [place] (L), U[place]LAK[place]ET (R), cataract (L), cataract (R), glaucoma, other Hematology/Immune: Reports: anemia, Denies: DVT, bleeding disorder, other Musculoskeletal/Integumentary: Denies: DDD, DJD, OA, RA, edema, other Other: other - overweight PMH Narrative: as above PSxH Narrative: multiple Sx for HS treatment Anesthesia Pre-op Phys. Exam Physician Exam Last Vital Signs Date Time Temp Pulse Resp B/P Pulse Ox O2 Delivery O2 Flow Rate FiO2 05/07/16 08:55 97.7 120 20 151/102 98 Room Air 05/05/16 00:00 2.0 Constitutional: NAD Neurologic: CN 2-12 intact Cardiovascular: RRR, no M/R/G Respiratory: CTA Gastrointestinal: S/NT/ND Airway Exam Mallampati Score: Class II MO: full Neck: flexible ROM: full Teeth: intact Dentures: no lower, no upper Anesthesia Pre-op A/P Labs see chart Studies Pre-op Studies: EKG Risk Assessment & Plan Assessment: ASA 2 Plan: GA with ETT Status Change Before Surgery: No Pre-Antibiotics Drug: Cefoxitin 2 gr. Given Within 1 Hr of Incision: Yes Time Given: 10:08 LIZ LAIRD M.D. May 07, 2016 12:48
[2016-05-07] MEDS ORDERED: DiphenhydrAMINE 50mg/ml Inj IVP PRN (13:00)
[2016-05-07] MEDS ORDERED: Meperidine 25mg/ml Inj IV PRN (13:00)
[2016-05-07] MEDS ORDERED: Ketorolac 30mg Inj IV PRN (13:00)
[2016-05-07] MEDS ORDERED: Midazolam 2mg/2ml Inj IVP PRN (13:00)
[2016-05-07] MEDS ORDERED: Hydromorphone 0.5mg/0.5ml inj IVP PRN (13:00)
[2016-05-07] MEDS ORDERED: fentaNYL 100 mcg/2 mL IV PRN (13:00)
[2016-05-07] MEDS ORDERED: Metoclopramide 10mg/2ml Inj IVP PRN (13:00)
[2016-05-07] MEDS ORDERED: Bacitracin Oint 15gm Tube TOPIC ONE (14:05)
--- NOTE | 2016-05-07 14:11 | Immediate Post-Op Evaluation ---
Immediate Post-Op Evalulation Immediate Post-Op Evalulation Procedure: Bilateral axillary wounds closure Date of Evaluation: May 07, 2016 Time of Evaluation: 14:10 IV Fluids: 1100 Blood Products: none Estimated Blood Loss: 50 Urinary Output: none Blood Pressure Systolic: 134 Blood Pressure Diastolic: 69 Pulse Rate: 86 Respiratory Rate: 20 O2 Sat by Pulse Oximetry: 99 Temperature (Fahrenheit): 97.8 Pain Score (1-10): 1 Nausea: No Vomiting: No Complications none Patient Status: reacts, patent, extubated, none Hydration Status: adequate LIZ LAIRD M.D. May 07, 2016 14:11
[2016-05-07] MEDS: PCA Morphine 1mg/ml 30 ML IV PRN (15:08)
--- NOTE | 2016-05-07 19:39 | General Progress Note ---
Assessment/Plan Problem List: (1) Swelling of left upper extremity ICD Codes: M79.89 - Other specified soft tissue disorders SNOMED: 585052127 (2) Axillary abscess ICD Codes: L02.419 - Cutaneous abscess of limb, unspecified SNOMED: 44411435 (3) Hidradenitis suppurativa ICD Codes: L73.2 - Hidradenitis suppurativa SNOMED: 67373990 Assessment/Plan - Admit to inpt s/p Debridement of bilateral axillary wounds and flap reclosure, POD 5 -s/p dressing change 05/04/16 -s/p wound closure 05/07/15 - Pain control - Blood cx ntd -tylenol -wound cx with GNR - Start IV abx; Ceftriaxone -dc IVF - Supp care pt af Subjective Date patient seen: May 07, 2016 Time patient seen: 19:38 Allergies: Coded Allergies: FISH CONTAINING PRODUCTS (Verified Allergy, Intermediate, rash, 04/06/16) Uncoded Allergies: Tape (Adverse Reaction, Intermediate, Blisters , 05/01/16) Patient stated she gets Blisteres for any tape used for dressing. Subjective no acute events o/n; no f/c Objective Last 24 Hour Vital Signs Date Time Temp Pulse Resp B/P Pulse Ox O2 Delivery O2 Flow Rate FiO2 05/07/16 15:46 97.6 05/07/16 15:45 97.6 05/07/16 15:35 16 05/07/16 15:25 97.6 94 15 140/74 100 Nasal Cannula 3.0 05/07/16 15:20 15 05/07/16 15:10 97 16 137/75 100 Nasal Cannula 3.0 05/07/16 15:08 14 05/07/16 14:55 101 15 141/69 100 Nasal Cannula 3.0 05/07/16 14:45 92 12 149/87 100 Simple Mask 6.0 05/07/16 14:30 96 14 160/79 100 Simple Mask 6.0 05/07/16 14:20 88 13 163/87 100 Simple Mask 6.0 05/07/16 14:11 86 20 99 05/07/16 14:10 87 11 152/83 100 Simple Mask 6.0 05/07/16 14:05 92 13 135/94 100 Simple Mask 6.0 05/07/16 14:02 98.3 101 14 163/94 100 Simple Mask 6.0 05/07/16 09:30 18 05/07/16 08:55 97.7 120 20 151/102 98 Room Air 05/07/16 08:00 18 05/07/16 04:00 18 05/07/16 00:00 18 05/06/16 20:24 99.9 105 18 120/87 98 Room Air 05/06/16 20:00 20 Intake and Output 05/06/16 05/07/16 19:00 07:00 Intake Total 220 ml 240 ml Balance 220 ml 240 ml Intake Oral 120 ml 240 ml IV Total 100 ml # Voids 2 1 # Bowel Movements 1 1 Height (Feet): 5 Height (Inches): 7.00 Weight (Pounds): 200 Objective Physical Exam Physical Exam Narrative General: alert, cooperative, no distress, appears stated age Head: normocephalic, without obvious abnormality, atraumatic Eyes: conjunctivae/corneas clear. PERRL, EOM's intact Throat: lips, mucosa, and tongue normal. MMM Neck: supple, symmetrical, trachea midline, and no JVD Lungs: clear to auscultation bilaterally Heart: regular rate and rhythm, S1, S2 normal, no murmur, click, rub or gallop Abdomen: soft, non-tender, non-distended, bowel sounds normal; no masses or organomegaly Extremities: extremities normal, atraumatic, no cyanosis; +edema of LUE Pulses: 2+ and symmetric Skin: skin color, texture, turgor normal; no rashes or lesions; L axillary wound c/d/i Neurologic: grossly normal, no focal deficits Farzana Kaplan M.D. May 07, 2016 19:39
[2016-05-07] MEDS: Docusate 100mg cap ORAL SCH (21:31)
[2016-05-08] VITALS: BP 132/79
--- NOTE | 2016-05-08 00:37 | Operative Note - Dictated ---
DATE OF OPERATION: 05/07/2016 PREOPERATIVE DIAGNOSIS: Bilateral open axillary wounds. POSTOPERATIVE DIAGNOSIS: Bilateral open axillary wounds. PROCEDURES: 1. Preparation of left axillary wound for flap closure. 2. Adjacent tissue transfer closure of axillary wound measuring 100 sq cm on the left. 3. Preparation of right axillary wound flap closure. 4. Adjacent tissue transfer closure of right axillary wound measuring 130 sq cm. SURGEON: Triny Ndiaye M.D. ROASTER SUPERVISOR: Beto Moerno M.D. ANESTHESIA: General. COMPLICATIONS: None. DRAINS: Included one ANITA size #15 on each side. EBL: 25 mL. DISPOSITION: Stable to the recovery room. INDICATIONS FOR SURGERY: This is a 30-year-old, female, who is now three days postoperative from last dressing change for an infection that she presented to the hospital for with bilateral wound dehiscence. She underwent initial debridement and washout of her wounds five days ago and 48 hours after that, underwent a repeat washout and is now ready for definitive closure of her wounds. She understands the risks and benefits of surgery and agreed to proceed. DETAILS OF THE OPERATION: The patient was brought to the operating room and laid supine on the operating room table. The bilateral axillary regions were prepped and draped in a sterile and usual fashion. We first began by elevating the flap that had been previously raised. This was the thoracodorsal flap on the left side. The flap was elevated that we noted at the donor site and needed further mobilization for closure of the donor site wound and the wound bed was debrided to prepare for flap transfer. Hemostasis was achieved. Following pulse lavage irrigation, a #15 ANITA was placed and the previously raised flap was then further mobilized with electrocautery to allow for transfer into the defect. The donor site was closed with #0 and 2-0 Vicryl sutures and the flap was inset with #0 and 2-0 Vicryl sutures as well. The size of the left axillary defect was 100 sq cm and following completion of the adjacent tissue transfer, 2-0 Prolene sutures were used to close the skin. We then turned our attention to the contralateral right axillary wound. The wound was prepared for flap transfer with debridement. The donor site was closed following irrigation and with pulse lavage and hemostasis. The donor site was closed with #0 and 2-0 Vicryl sutures. The thoracodorsal flap that had been previously elevated was further mobilized with electrocautery at its base to allow for definitive inset into the wound. In addition, we had to debride the flaps from one of its tip to allow for good fit as it was somewhat long upon transfer and so, we debrided back about 1 cm to allow for good fit. The flap was then inset using #0 and 2-0 Vicryl sutures and 2-0 Prolene sutures were used to close the skin. This thus completed the bilateral axillary wound preparation for flap transfer and adjacent tissue transfer. Triny Ndiaye M.D. DR: ARLEEN JOB#: [id number] CC:
[2016-05-08 04:00] VITALS: BP 124/75
[2016-05-08] MEDS: PCA shift volume MISC SCH ×3 (07:23→23:00)
[2016-05-08 08:00] VITALS: BP 106/69
--- NOTE | 2016-05-08 10:02 | General Progress Note ---
Progress Note Progress Note Pt seen and examined. She is doing well POD # 1 from closure of bilateral axillary wounds. Plan for HBO to be started while inpatient. 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 XIMENA Rojas MD May 08, 2016 10:02
[2016-05-08] MEDS: Docusate 100mg cap ORAL SCH ×2 (10:51→18:43)
[2016-05-08] MEDS: Heparin 5000 units/ml inj SUBQ SCH ×2 (10:55→21:00)
[2016-05-08 12:00] VITALS: BP 136/92
--- NOTE | 2016-05-08 12:04 | 48 Hour Post Anesthesia Eval ---
Post Anesthesia Evaluation Procedure: Bilateral axillary wounds closure Date of Evaluation: May 08, 2016 Time of Evaluation: 14:35 Blood Pressure Systolic: 106 0: 69 Pulse Rate: 93 Respiratory Rate: 18 Temperature (Fahrenheit): 97.9 O2 Sat by Pulse Oximetry: 97 Airway: patent Nausea: No Vomiting: No Pain Intensity: 2 If pain is > 6 Comment: Patient using [employer] appropriately Hydration Status: adequate Cardiopulmonary Status: Stable Mental Status/LOC: patient returned to baseline Follow-up Care/Observations: As per surgery Post-Anesthesia Complications: No anesthetic complication Follow-up care needed: N/A LELAND DEWEY M.D. May 08, 2016 12:04
[2016-05-08] MEDS: cefTRIAXone 1 GM in D5W 50 ML IVPB SCH (12:26)
[2016-05-08] MEDS: PCA Morphine 1mg/ml 30 ML IV PRN (15:21)
[2016-05-08 16:14] VITALS: BP 153/81
--- NOTE | 2016-05-08 16:26 | General Progress Note ---
Assessment/Plan Problem List: (1) Swelling of left upper extremity ICD Codes: M79.89 - Other specified soft tissue disorders SNOMED: 287334165 (2) Axillary abscess ICD Codes: L02.419 - Cutaneous abscess of limb, unspecified SNOMED: 04531655 (3) Hidradenitis suppurativa ICD Codes: L73.2 - Hidradenitis suppurativa SNOMED: 45889257 Assessment/Plan - Admit to inpt s/p Debridement of bilateral axillary wounds and flap reclosure, POD 6 -s/p dressing change 05/04/16 -s/p wound closure 05/07/15 - Pain control - Blood cx ntd -tylenol -wound cx with GNR - Start IV abx; Ceftriaxone -dc IVF - Supp care pt af Subjective Date patient seen: May 08, 2016 Time patient seen: 16:25 Allergies: Coded Allergies: FISH CONTAINING PRODUCTS (Verified Allergy, Intermediate, rash, 04/06/16) Uncoded Allergies: Tape (Adverse Reaction, Intermediate, Blisters , 05/01/16) Patient stated she gets Blisteres for any tape used for dressing. Subjective no acute events o/n; no f/c Objective Last 24 Hour Vital Signs Date Time Temp Pulse Resp B/P Pulse Ox O2 Delivery O2 Flow Rate FiO2 05/08/16 16:14 98.6 107 19 153/81 97 Room Air 05/08/16 12:04 93 18 97 05/08/16 12:00 20 05/08/16 12:00 97.5 105 17 136/92 98 Room Air 05/08/16 08:00 97.9 93 18 106/69 99 Room Air 05/08/16 08:00 20 05/08/16 04:00 16 05/08/16 04:00 98.2 107 18 124/75 95 Room Air 05/08/16 00:00 16 05/08/16 00:00 99.0 103 18 132/79 95 Room Air 05/07/16 23:59 16 05/07/16 20:00 98.1 112 18 137/75 98 Nasal Cannula 2.0 05/07/16 20:00 16 05/07/16 17:30 111 20 143/70 98 Nasal Cannula 2.0 05/07/16 17:00 103 20 131/69 97 Nasal Cannula 2.0 05/07/16 16:30 99 18 136/63 99 Nasal Cannula 2.0 Intake and Output 05/07/16 05/08/16 19:00 07:00 Intake Total 1350 ml 840 ml Output Total 50 ml 55 ml Balance 1300 ml 785 ml Intake Oral 840 ml IV Total 1350 ml Drainage Total 0 ml 55 ml Estimated Blood Loss 50 ml # Voids 2 Height (Feet): 5 Height (Inches): 7.00 Weight (Pounds): 200 Objective Physical Exam Physical Exam Narrative General: alert, cooperative, no distress, appears stated age Head: normocephalic, without obvious abnormality, atraumatic Eyes: conjunctivae/corneas clear. PERRL, EOM's intact Throat: lips, mucosa, and tongue normal. MMM Neck: supple, symmetrical, trachea midline, and no JVD Lungs: clear to auscultation bilaterally Heart: regular rate and rhythm, S1, S2 normal, no murmur, click, rub or gallop Abdomen: soft, non-tender, non-distended, bowel sounds normal; no masses or organomegaly Extremities: extremities normal, atraumatic, no cyanosis; +edema of LUE Pulses: 2+ and symmetric Skin: skin color, texture, turgor normal; no rashes or lesions; L axillary wound c/d/i Neurologic: grossly normal, no focal deficits Farzana Kaplan M.D. May 08, 2016 16:26
[2016-05-08 20:20] VITALS: BP 139/71
--- NOTE | 2016-05-08 20:32 | Infectious Diseases Prog Note ---
Assessment/Plan Assessment/Plan Full consult to follow: A) 1) bilateral axilla wound infection - wound dehiscence 2) s/p debridement on 05/02/16 3) s/p flap closure on 05/07/16 4) wound culture on 05/02 - polymicrobial - gram negative - e.coli, morganella , anaerobic - prevotella and enterococcus 5) difficult to tell which bacteria are pathogenic but all are potential pathogens 6) hidradenitis suppurativa P) 1) will change abx to zosyn 2) continue treatment per Dr. Castillo and Dr. Ndiaye 3) local wound care 4) d/w pt 5) thank you Subjective Allergies: Coded Allergies: FISH CONTAINING PRODUCTS (Verified Allergy, Intermediate, rash, 04/06/16) Uncoded Allergies: Tape (Adverse Reaction, Intermediate, Blisters , 05/01/16) Patient stated she gets Blisteres for any tape used for dressing. Objective Vital Signs Last 24 Hour Vital Signs Date Time Temp Pulse Resp B/P Pulse Ox O2 Delivery O2 Flow Rate FiO2 05/08/16 16:14 98.6 107 19 153/81 97 Room Air 05/08/16 16:00 18 05/08/16 12:04 93 18 97 05/08/16 12:00 20 05/08/16 12:00 97.5 105 17 136/92 98 Room Air 05/08/16 08:00 97.9 93 18 106/69 99 Room Air 05/08/16 08:00 20 05/08/16 04:00 16 05/08/16 04:00 98.2 107 18 124/75 95 Room Air 05/08/16 00:00 16 05/08/16 00:00 99.0 103 18 132/79 95 Room Air 05/07/16 23:59 16 Height (Feet): 5 Height (Inches): 7.00 Weight (Pounds): 200 Current Medications Medications (Trade) Dose Ordered Sig/Isela Route PRN Reason Start Time Stop Time Status Last Admin Dose Admin Acetaminophen 650 mg 650 mg Q4H PRN ORAL FEVER 05/07/16 09:30 06/06/16 09:29 Ceftriaxone Sodium/Dextrose (Rocephin/D5W 50ml) 50 ml @ 100 mls/hr Q24H IVPB 05/05/16 11:00 05/12/16 10:59 1/10/17 12:26 Dextrose STAT PRN IV Hypoglycemia 05/01/16 16:15 05/31/16 16:14 Docusate Sodium (Colace) 100 mg TWICE A DAY ORAL 05/07/16 18:00 06/06/16 17:59 05/08/16 18:43 Heparin Sodium (Porcine) (Heparin 5000 units/ml) 5,000 units EVERY 12 HOURS SUBQ 05/07/16 21:00 06/06/16 20:59 05/08/16 10:55 Miscellaneous Medication (SCABBLER Rate Change) 1 ea DAILY PRN MISC rate change 05/07/16 10:30 05/09/16 10:29 Miscellaneous Medication (SCABBLER shift volume) 1 ea Q8HR@07,15,23 MISC 05/07/16 15:00 05/09/16 14:59 05/08/16 15:00 Morphine Sulfate (SCABBLER Morphine) 30 ml @ 0 mls/hr Q24H PRN IV For Pain 05/07/16 10:30 05/09/16 10:29 05/08/16 15:21 Ondansetron HCl (Zofran) 4 mg Q6H PRN IVP Nausea & Vomiting 05/07/16 09:30 06/06/16 09:29 Temazepam (Restoril) 7.5 mg HSPRN PRN ORAL Insomnia 05/06/16 21:00 05/08/16 20:59 ILANA SHELL May 08, 2016 20:32
[2016-05-09] VITALS: BP 134/68
[2016-05-09 04:00] VITALS: BP 106/56
[2016-05-09] MEDS: PCA shift volume MISC SCH ×3 (07:26→23:06)
[2016-05-09 08:00] VITALS: BP 122/69
[2016-05-09] MEDS ORDERED: Rate Change PCA 1 Each MISC PRN (09:00)
[2016-05-09] MEDS ORDERED: DiphenhydrAMINE 50mg/ml Inj IVP PRN (09:00)
[2016-05-09] MEDS: Docusate 100mg cap ORAL SCH ×2 (09:42→18:05)
[2016-05-09] MEDS: Heparin 5000 units/ml inj SUBQ SCH ×2 (09:49→21:00)
[2016-05-09 12:53] VITALS: BP 154/82
--- NOTE | 2016-05-09 14:24 | Consultation ---
Consult Note Consult Note HYPERBARIC OXYGEN THERAPY CONSULTATION Chart reviewed, Patient examined. Full note to follow. Patient will most likely benefit from HBO Tx to help healing of failed flaps. Will need to obtain approval from Insurance Company for HBO Tx as in-patient/ out-patient. Luis Mcgowan M.D, LUIS MCGOWAN May 09, 2016 14:24
[2016-05-09] MEDS: Nystatin Powder 100,000 units/gm 15gm TOPIC SCH ×2 (15:40→18:00)
[2016-05-09 16:04] VITALS: BP 133/74
[2016-05-09] MEDS: PCA Morphine 1mg/ml 30 ML IV PRN (18:14)
[2016-05-09] MEDS ORDERED: NS 550ML IV ONE (18:16)
[2016-05-09] MEDS ORDERED: Tubing IV Secondary IV ONE (18:16)
--- NOTE | 2016-05-09 19:55 | General Progress Note ---
Assessment/Plan Problem List: (1) Swelling of left upper extremity ICD Codes: M79.89 - Other specified soft tissue disorders SNOMED: 024533455 (2) Axillary abscess ICD Codes: L02.419 - Cutaneous abscess of limb, unspecified SNOMED: 26840327 (3) Hidradenitis suppurativa ICD Codes: L73.2 - Hidradenitis suppurativa SNOMED: 50990678 Assessment/Plan - Admit to inpt s/p Debridement of bilateral axillary wounds and flap reclosure, POD 7 -s/p dressing change 05/04/16 -s/p wound closure 05/07/15 - Pain control - Blood cx ntd -tylenol -wound cx with GNR - Start IV abx; Ceftriaxone-->Zosyn per ID -dc IVF - Supp care pt af Subjective Date patient seen: May 09, 2016 Time patient seen: 19:54 Allergies: Coded Allergies: FISH CONTAINING PRODUCTS (Verified Allergy, Intermediate, rash, 04/06/16) Uncoded Allergies: Tape (Adverse Reaction, Intermediate, Blisters , 05/01/16) Patient stated she gets Blisteres for any tape used for dressing. Subjective no acute events o/n; no f/c Objective Last 24 Hour Vital Signs Date Time Temp Pulse Resp B/P Pulse Ox O2 Delivery O2 Flow Rate FiO2 05/09/16 18:44 98.2 05/09/16 16:04 98.2 99 18 133/74 98 Room Air 05/09/16 16:00 18 05/09/16 12:53 97.3 114 18 154/82 97 Room Air 05/09/16 12:00 20 05/09/16 08:00 18 05/09/16 08:00 98.1 102 20 122/69 98 Room Air 05/09/16 04:00 18 05/09/16 04:00 99.0 96 18 106/56 97 Room Air 05/09/16 00:00 99.0 109 18 134/68 98 Room Air 05/09/16 00:00 17 05/08/16 20:20 99.3 106 20 139/71 97 Room Air 05/08/16 20:00 18 Intake and Output 05/08/16 05/09/16 19:00 07:00 Intake Total 600 ml 588 ml Output Total 6 ml 0 ml Balance 594 ml 588 ml Intake Oral 600 ml 480 ml IV Total 108 ml Drainage Total 6 ml 0 ml # Voids 2 1 # Bowel Movements 1 1 Height (Feet): 5 Height (Inches): 7.00 Weight (Pounds): 200 Objective Physical Exam Physical Exam Narrative General: alert, cooperative, no distress, appears stated age Head: normocephalic, without obvious abnormality, atraumatic Eyes: conjunctivae/corneas clear. PERRL, EOM's intact Throat: lips, mucosa, and tongue normal. MMM Neck: supple, symmetrical, trachea midline, and no JVD Lungs: clear to auscultation bilaterally Heart: regular rate and rhythm, S1, S2 normal, no murmur, click, rub or gallop Abdomen: soft, non-tender, non-distended, bowel sounds normal; no masses or organomegaly Extremities: extremities normal, atraumatic, no cyanosis; +edema of LUE Pulses: 2+ and symmetric Skin: skin color, texture, turgor normal; no rashes or lesions; L axillary wound c/d/i Neurologic: grossly normal, no focal deficits Farzana Kaplan M.D. May 09, 2016 19:55
[2016-05-09 20:00] VITALS: BP 139/84
--- NOTE | 2016-05-09 20:28 | Infectious Diseases Prog Note ---
Assessment/Plan Assessment/Plan Full consult dictated A) 1) bilateral axilla wound infection - wound dehiscence 2) s/p debridement on 05/02/16 3) s/p flap closure on 05/07/16 4) wound culture on 05/02 - polymicrobial - gram negative - e.coli, morganella , anaerobic - prevotella and enterococcus 5) difficult to tell which bacteria are pathogenic but all are potential pathogens 6) hidradenitis suppurativa P) 1) zosyn 2) continue treatment per Dr. Castillo and Dr. Ndiaye 3) local wound care 4) d/w pt 5) d/w Dr. Castillo Subjective Constitutional: Denies: fever HEENT: Denies: congestion Respiratory: Denies: shortness of breath Cardiovascular: Denies: chest pain Gastrointestinal/Abdominal: Denies: vomiting Allergies: Coded Allergies: FISH CONTAINING PRODUCTS (Verified Allergy, Intermediate, rash, 04/06/16) Uncoded Allergies: Tape (Adverse Reaction, Intermediate, Blisters , 05/01/16) Patient stated she gets Blisteres for any tape used for dressing. Objective Vital Signs Last 24 Hour Vital Signs Date Time Temp Pulse Resp B/P Pulse Ox O2 Delivery O2 Flow Rate FiO2 05/09/16 18:44 98.2 05/09/16 16:04 98.2 99 18 133/74 98 Room Air 05/09/16 16:00 18 05/09/16 12:53 97.3 114 18 154/82 97 Room Air 05/09/16 12:00 20 05/09/16 08:00 18 05/09/16 08:00 98.1 102 20 122/69 98 Room Air 05/09/16 04:00 18 05/09/16 04:00 99.0 96 18 106/56 97 Room Air 05/09/16 00:00 99.0 109 18 134/68 98 Room Air 05/09/16 00:00 17 Height (Feet): 5 Height (Inches): 7.00 Weight (Pounds): 200 General Appearance: no acute distress HEENT: normocephalic, atraumatic, anicteric, mucous membranes moist, PERRL, EOMI, pharynx normal, supple, no JVD Respiratory/Chest: chest wall non-tender, normal breath sounds, no respiratory distress Cardiovascular: normal rate, regular rhythm, regularly irregular Abdomen: normal bowel sounds, soft, non tender, no organomegaly Current Medications Medications (Trade) Dose Ordered Sig/Isela Route PRN Reason Start Time Stop Time Status Last Admin Dose Admin Acetaminophen 650 mg 650 mg Q4H PRN ORAL FEVER 05/07/16 09:30 06/06/16 09:29 Dextrose (Dextrose 50%) STAT PRN IV Hypoglycemia 05/01/16 16:15 05/31/16 16:14 Diphenhydramine HCl (Benadryl) 25 mg Q6H PRN IVP Itching 05/09/16 09:00 06/08/16 08:59 Docusate Sodium (Colace) 100 mg TWICE A DAY ORAL 05/07/16 18:00 06/06/16 17:59 05/09/16 18:05 Heparin Sodium (Porcine) (Heparin 5000 units/ml) 5,000 units EVERY 12 HOURS SUBQ 05/07/16 21:00 06/06/16 20:59 05/09/16 09:49 Miscellaneous Medication (SUPERVISOR BOATBUILDERS WOOD Rate Change) 1 ea DAILY PRN MISC rate change 05/09/16 09:00 05/11/16 23:59 Miscellaneous Medication (SUPERVISOR [employer] WOOD shift volume) 1 ea Q8HR@07,15,23 MISC 05/09/16 15:00 05/11/16 14:59 05/09/16 15:00 Morphine Sulfate (SUPERVISOR [employer] Morphine) 30 ml @ 0 mls/hr Q24H PRN IV For Pain 05/09/16 10:00 05/11/16 09:59 05/09/16 18:14 Nystatin (Nystop Powder) 1 applic THREE TIMES A DAY TOPIC 05/09/16 13:00 06/08/16 12:59 05/09/16 15:40 Ondansetron HCl (Zofran) 4 mg Q6H PRN IVP Nausea & Vomiting 05/09/16 09:30 06/08/16 09:29 Piperacillin Sod/ Tazobactam Sod 3.375 gm/Dextrose 100 ml @ 25 mls/hr EVERY 8 HOURS IVPB 05/08/16 22:00 05/13/16 21:59 05/09/16 15:40 ILANA SHELL May 09, 2016 20:28
--- NOTE | 2016-05-10 05:37 | Consultation ---
DATE OF CONSULTATION: 05/09/2016 INFECTIOUS DISEASE CONSULTATION CONSULTING PHYSICIAN: Antony Flood M.D. ATTENDING PHYSICIAN: Constance Antunez M.D. I was asked by Dr. Kaplan to see this patient. REASON FOR CONSULTATION: Bilateral axilla infected wounds and antibiotic management. CHIEF COMPLAINT: The patient's chief complaint coming in is infected bilateral axillary wounds. HISTORY OF PRESENT ILLNESS: This is a 30-year-old female with history of hidradenitis suppurativa, who comes in to [facility] because the patient has a history of bilateral hidradenitis suppurativa and had surgery of the bilateral axilla. The patient was noted to have wound drainage and dehiscence at both axilla. The patient underwent debridement on 05/02/2016 and then flap closure on 05/07/2016. The culture from 05/02/2016 showed polymicrobial organisms. She had polymicrobial infection with multiple organisms including Morganella, E. coli, Enterococcus faecalis, and Prevotella bivia. Infectious Disease consultation was requested for antibiotic management. I saw the patient yesterday and placed her on Zosyn for polymicrobial coverage. Case was discussed with Dr. Kaplan and the patient. MAR was noted. Orders were noted. Notes and records were reviewed. Case was also discussed with RN. PAST MEDICAL HISTORY: The patient's past medical history includes a history of hydradenitis suppurativa status post a history of surgery to axilla including bilateral axillary reconstruction. She has a history of hydradenitis suppurativa with multiple antibiotic courses. She has no other significant past medical history. No history of diabetes or hypertension. Please see past medical history in medical order. MEDICATIONS: Upon reviewing the MAR, the patient is on the following medications. The patient is on nystatin powder. She is on Zofran and morphine. She is on Zosyn 3.375 g every eight hours. She is on heparin, docusate, and acetaminophen. Please see medications in medical order. ALLERGIES: Include fish containing products and tape. SOCIAL HISTORY: Negative for smoking, alcohol, and drug abuse. FAMILY HISTORY: Noncontributory. REVIEW OF SYSTEMS: Constitutional: The patient has no Wasserman or PICC line. She has no focal weaknesses. No fever at this time. No chills. Head And Neck: No mention of thrush or dysphagia. Pulmonary: No shortness of breath, cough, or sputum production. Cardiac: No chest pain. Gastrointestinal: No nausea, vomiting, or diarrhea. Genitourinary: No Wasserman. Skin: No rash or itching. Neurologic: No seizures mentioned. Physical Examination: General: The patient is alert and oriented x3 and in no acute distress. Vital Signs: Temperature 98.3 degrees, pulse rate 99, respiratory rate 18, blood pressure 130/74, and saturation 98%. Head And Neck: Oral exam, no thrush. Normocephalic. No facial droop. No icterus on eye exam. Lungs: Clear bilaterally. No rhonchi or rales. Heart: Regular. No gallop or murmur. No friction rub. Abdomen: Soft. Positive bowel sounds. Nontender. Skin: No rash noted. Extremities: No cyanosis. Neurologic: Intact. Alert and oriented x3. Lines: Line sites is without phlebitis. Genitourinary: No Wasserman. Otherwise, exam is unremarkable. LABORATORY DATA: Laboratory data is as follows. White count 8.9, hemoglobin 8.5. Creatinine is 0.8. Urinalysis is positive for white blood cells only. CULTURES: Blood culture is negative. Axilla culture is from 05/02/2016 showed E. coli, Morganella, Enterococcus, and Prevotella. Sensitivities were noted. ASSESSMENT AND PLAN: 1. The patient is a 30-year-old female, who had hidradenitis suppurativa status post bilateral axilla wound infection, wound dehiscence, and status post debridement. The patient is status post flap closure also. The patient has multiple organisms including Escherichia coli, Morganella, Prevotella, and Enterococcus. It is difficult to ascertain, which bacteria are pathogenic, however, all are potential pathogens. Often, one can get polymicrobial infection and a soft tissue infection. At this time, will continue with Zosyn the patient is on and it will cover the gram negatives including Escherichia coli and Morganella. In general, it has excellent anaerobic coverage for such bacteria as Prevotella and it does have Enterococcus coverage also. We will continue antibiotics and continue with local wound care and watch the patient on Zosyn. This is day #2. We will transition to oral antibiotics if the patient continues to remain stable on Zosyn. 2. Continue other treatment with Dr. Kaplan and Dr. Ndiaye and wound care per Dr. Ndiaye. 3. The patient has anemia. 4. Pain management per Dr. Kaplan. 5. History of hidradenitis suppurativa. 6. History of multi-antibiotic coverage. 7. History of bilateral axillary reconstruction surgery. 8. Allergies to fish-containing products and tape. 9. Social history is negative. 10. Case was discussed with Dr. Kaplan and the RN and the patient. Antony Flood M.D. DR: CULLEN JOB#: [id number] CC:
[2016-05-10] MEDS: PCA shift volume MISC SCH ×3 (07:23→23:00)
[2016-05-10 08:00] VITALS: BP 139/96
[2016-05-10] MEDS: Nystatin Powder 100,000 units/gm 15gm TOPIC SCH ×3 (09:09→18:34)
[2016-05-10] MEDS: Docusate 100mg cap ORAL SCH ×2 (09:09→18:33)
[2016-05-10] MEDS: Heparin 5000 units/ml inj SUBQ SCH ×2 (09:14→21:00)
[2016-05-10 12:00] VITALS: BP 125/74
[2016-05-10 16:00] VITALS: BP 118/73
--- NOTE | 2016-05-10 17:52 | General Progress Note ---
Assessment/Plan Problem List: (1) Swelling of left upper extremity ICD Codes: M79.89 - Other specified soft tissue disorders SNOMED: 895753233 (2) Axillary abscess ICD Codes: L02.419 - Cutaneous abscess of limb, unspecified SNOMED: 88747450 (3) Hidradenitis suppurativa ICD Codes: L73.2 - Hidradenitis suppurativa SNOMED: 31022837 Assessment/Plan - Admit to inpt s/p Debridement of bilateral axillary wounds and flap reclosure, POD 8 -s/p dressing change 05/04/16 -s/p wound closure 05/07/15 - Pain control - Blood cx ntd -tylenol -wound cx with GNR - Start IV abx; Ceftriaxone-->Zosyn per ID -dc IVF - Supp care pt af us on admission of [facility] for DVT Subjective Date patient seen: May 10, 2016 Time patient seen: 17:49 Allergies: Coded Allergies: FISH CONTAINING PRODUCTS (Verified Allergy, Intermediate, rash, 04/06/16) Uncoded Allergies: Tape (Adverse Reaction, Intermediate, Blisters , 05/01/16) Patient stated she gets Blisteres for any tape used for dressing. Subjective no acute events o/n; no f/c Objective Last 24 Hour Vital Signs Date Time Temp Pulse Resp B/P Pulse Ox O2 Delivery O2 Flow Rate FiO2 05/10/16 16:00 98.4 96 14 118/73 98 Room Air 05/10/16 16:00 18 05/10/16 12:00 97.7 89 22 125/74 97 Room Air 05/10/16 12:00 18 05/10/16 08:00 18 05/10/16 08:00 98.4 102 19 139/96 97 Room Air 05/10/16 04:00 18 05/10/16 00:00 18 05/09/16 20:00 98.4 102 19 139/84 100 Room Air 05/09/16 20:00 18 05/09/16 18:44 98.2 Intake and Output 05/09/16 05/10/16 19:00 07:00 Intake Total 295 ml 517.5 ml Output Total 23 ml 0 ml Balance 272 ml 517.5 ml Intake Oral 120 ml 480 ml IV Total 175 ml 37.5 ml Drainage Total 23 ml 0 ml # Voids 3 1 # Bowel Movements 2 Height (Feet): 5 Height (Inches): 7.00 Weight (Pounds): 200 Objective Physical Exam Physical Exam Narrative General: alert, cooperative, no distress, appears stated age Head: normocephalic, without obvious abnormality, atraumatic Eyes: conjunctivae/corneas clear. PERRL, EOM's intact Throat: lips, mucosa, and tongue normal. MMM Neck: supple, symmetrical, trachea midline, and no JVD Lungs: clear to auscultation bilaterally Heart: regular rate and rhythm, S1, S2 normal, no murmur, click, rub or gallop Abdomen: soft, non-tender, non-distended, bowel sounds normal; no masses or organomegaly Extremities: extremities normal, atraumatic, no cyanosis; +edema of LUE Pulses: 2+ and symmetric Skin: skin color, texture, turgor normal; no rashes or lesions; L axillary wound c/d/i Neurologic: grossly normal, no focal deficits Farzana Kaplan M.D. May 10, 2016 17:51
[2016-05-10 20:00] VITALS: BP 135/89
[2016-05-10] MEDS: PCA Morphine 1mg/ml 30 ML IV PRN (23:55)
[2016-05-11] VITALS: BP 123/73
[2016-05-11] MEDS: PCA shift volume MISC SCH ×3 (07:25→23:00)
[2016-05-11 08:00] VITALS: BP 121/73
[2016-05-11] MEDS: Nystatin Powder 100,000 units/gm 15gm TOPIC SCH ×3 (09:18→18:42)
[2016-05-11] MEDS: Docusate 100mg cap ORAL SCH ×2 (09:18→18:41)
[2016-05-11] MEDS: Heparin 5000 units/ml inj SUBQ SCH ×2 (09:20→21:00)
[2016-05-11] MEDS ORDERED: PCA Morphine 1mg/ml 30 ML IV PRN (10:00)
--- NOTE | 2016-05-11 13:27 | Infectious Diseases Prog Note ---
Assessment/Plan Assessment/Plan A) 1) bilateral axilla wound infection - wound dehiscence 2) s/p debridement on 05/02/16 3) s/p flap closure on 05/07/16 4) wound culture on 05/02 - polymicrobial - gram negative - e.coli, morganella , anaerobic - prevotella and enterococcus 5) difficult to tell which bacteria are pathogenic but all are potential pathogens 6) hidradenitis suppurativa 7) allergies - fish, sh-negative, fh-nc, mar noted, notes and records reviewed 8) d/w RN P) 1) zosyn 2) continue treatment per Dr. Castillo and Dr. Ndiaye 3) local wound care 4) d/w pt Subjective Constitutional: Denies: fever HEENT: Denies: congestion Respiratory: Denies: shortness of breath Cardiovascular: Denies: chest pain Gastrointestinal/Abdominal: Denies: diarrhea, nausea, vomiting Neurologic: Denies: headache Psychiatric: Denies: depression Skin: Reports: other - wounds clean and dry per RN, Denies: rash Hematologic: Denies: bleeding Musculoskeletal: Denies: pain Allergies: Coded Allergies: FISH CONTAINING PRODUCTS (Verified Allergy, Intermediate, rash, 04/06/16) Uncoded Allergies: Tape (Adverse Reaction, Intermediate, Blisters , 05/01/16) Patient stated she gets Blisteres for any tape used for dressing. Objective Vital Signs Last 24 Hour Vital Signs Date Time Temp Pulse Resp B/P Pulse Ox O2 Delivery O2 Flow Rate FiO2 05/11/16 08:00 18 05/11/16 08:00 98.2 104 20 121/73 97 Room Air 05/11/16 04:00 18 05/11/16 00:00 98.4 100 18 123/73 98 Room Air 05/11/16 00:00 18 05/10/16 20:00 18 05/10/16 20:00 98.1 115 14 135/89 96 Room Air 05/10/16 16:00 98.4 96 14 118/73 98 Room Air 05/10/16 16:00 18 Height (Feet): 5 Height (Inches): 7.00 Weight (Pounds): 200 General Appearance: no acute distress HEENT: normocephalic, atraumatic, anicteric, mucous membranes moist, PERRL, EOMI, pharynx normal, supple, no JVD Respiratory/Chest: lungs clear, normal breath sounds, no respiratory distress, no accessory muscle use Cardiovascular: normal rate, regular rhythm, no gallop/murmur, no JVD Abdomen: normal bowel sounds, soft, non tender, no organomegaly, non distended Genitourinary: other - no grove Extremities: no cyanosis Skin: no rash, other - wounds covered, + drains Neurologic/Psychiatric: ham passer II-XII grossly normal, alert, oriented x 3, responsive Lymphatic: no neck adenopathy Musculoskeletal: no effusion Objective none Microbiology Date/Time Source Procedure Growth Status 05/02/16 06:50 Blood Blood Culture - Final NO GROWTH AFTER 5 DAYS Complete 05/02/16 16:30 Axilla Right Gram Stain - Final Complete 05/02/16 16:30 Aerobic Culture - Final Escherichia Coli Morganella Morg Spp Morganii Enterococcus Faecalis Complete 05/02/16 16:30 Anaerobic Culture - Final Prevotella Bivia Complete wbc - 8.9 hgb - 11.5 cr - 0.8 Current Medications Medications (Trade) Dose Ordered Sig/Isela Route PRN Reason Start Time Stop Time Status Last Admin Dose Admin Acetaminophen 650 mg 650 mg Q4H PRN ORAL FEVER 05/07/16 09:30 06/06/16 09:29 Dextrose (Dextrose 50%) STAT PRN IV Hypoglycemia 05/01/16 16:15 05/31/16 16:14 Diphenhydramine HCl (Benadryl) 25 mg Q6H PRN IVP Itching 05/09/16 09:00 06/08/16 08:59 Docusate Sodium (Colace) 100 mg TWICE A DAY ORAL 05/07/16 18:00 06/06/16 17:59 05/11/16 09:18 Gabapentin 300 mg 300 mg BEDTIME PRN ORAL neuropathy 05/09/16 21:00 06/08/16 20:59 05/09/16 22:12 Heparin Sodium (Porcine) (Heparin 5000 units/ml) 5,000 units EVERY 12 HOURS SUBQ 05/07/16 21:00 06/06/16 20:59 05/11/16 09:20 Miscellaneous Medication (BELLOWS CHARGER ASSEMBLER Rate Change) 1 ea DAILY PRN MISC rate change 05/09/16 09:00 05/11/16 23:59 Miscellaneous Medication (BELLOWS CHARGER ASSEMBLER shift volume) 1 ea Q8HR@07,15,23 MISC 05/09/16 15:00 05/11/16 14:59 05/11/16 07:25 Morphine Sulfate (BELLOWS CHARGER ASSEMBLER Morphine) 30 ml @ 0 mls/hr Q24H PRN IV For Pain 05/11/16 10:00 05/13/16 09:59 Nystatin (Nystop Powder) 1 applic THREE TIMES A DAY TOPIC 05/09/16 13:00 06/08/16 12:59 05/11/16 13:02 Ondansetron HCl (Zofran) 4 mg Q6H PRN IVP Nausea & Vomiting 05/09/16 09:30 06/08/16 09:29 Piperacillin Sod/ Tazobactam Sod/ Dextrose (Zosyn/D5W 100ml) 100 ml @ 25 mls/hr EVERY 8 HOURS IVPB 05/08/16 22:00 05/13/16 21:59 05/11/16 05:15 ILANA SHELL May 11, 2016 13:27
--- NOTE | 2016-05-11 15:49 | General Progress Note ---
Assessment/Plan Problem List: (1) Swelling of left upper extremity ICD Codes: M79.89 - Other specified soft tissue disorders SNOMED: 025543360 (2) Axillary abscess ICD Codes: L02.419 - Cutaneous abscess of limb, unspecified SNOMED: 64138591 (3) Hidradenitis suppurativa ICD Codes: L73.2 - Hidradenitis suppurativa SNOMED: 63777570 Assessment/Plan - Admit to inpt s/p Debridement of bilateral axillary wounds and flap reclosure, POD 9 -s/p dressing change 05/04/16 -s/p wound closure 05/07/15 - Pain control - Blood cx ntd -tylenol -wound cx with four organisms - Start IV abx; Ceftriaxone-->Zosyn per ID -dc IVF - Supp care pt af us on admission of [facility] for DVT Subjective Date patient seen: May 11, 2016 Time patient seen: 15:47 Allergies: Coded Allergies: FISH CONTAINING PRODUCTS (Verified Allergy, Intermediate, rash, 04/06/16) Uncoded Allergies: Tape (Adverse Reaction, Intermediate, Blisters , 05/01/16) Patient stated she gets Blisteres for any tape used for dressing. Subjective no acute events o/n; no f/c Objective Last 24 Hour Vital Signs Date Time Temp Pulse Resp B/P Pulse Ox O2 Delivery O2 Flow Rate FiO2 05/11/16 12:00 18 05/11/16 08:00 18 05/11/16 08:00 98.2 104 20 121/73 97 Room Air 05/11/16 04:00 18 05/11/16 00:00 98.4 100 18 123/73 98 Room Air 05/11/16 00:00 18 05/10/16 20:00 18 05/10/16 20:00 98.1 115 14 135/89 96 Room Air 05/10/16 16:00 98.4 96 14 118/73 98 Room Air 05/10/16 16:00 18 Intake and Output 05/10/16 05/11/16 19:00 07:00 Intake Total 300 ml 390 ml Output Total 0 ml 30 ml Balance 300 ml 360 ml Intake Oral 300 ml 240 ml IV Total 150 ml Drainage Total 0 ml 30 ml # Voids 1 Height (Feet): 5 Height (Inches): 7.00 Weight (Pounds): 200 Objective Physical Exam Physical Exam Narrative General: alert, cooperative, no distress, appears stated age Head: normocephalic, without obvious abnormality, atraumatic Eyes: conjunctivae/corneas clear. PERRL, EOM's intact Throat: lips, mucosa, and tongue normal. MMM Neck: supple, symmetrical, trachea midline, and no JVD Lungs: clear to auscultation bilaterally Heart: regular rate and rhythm, S1, S2 normal, no murmur, click, rub or gallop Abdomen: soft, non-tender, non-distended, bowel sounds normal; no masses or organomegaly Extremities: extremities normal, atraumatic, no cyanosis; +edema of BL UE Pulses: 2+ and symmetric Skin: skin color, texture, turgor normal; no rashes or lesions; L axillary wound c/d/i Neurologic: grossly normal, no focal deficits Farzana Kaplan M.D. May 11, 2016 15:49
[2016-05-11 16:00] VITALS: BP 129/71
[2016-05-11 19:00] VITALS: BP 126/79
--- NOTE | 2016-05-11 19:37 | Consultation ---
DATE OF CONSULTATION: 05/09/2016 HYPERBARIC OXYGEN THERAPY/INTERNAL MEDICINE CONSULTATION REASON FOR CONSULTATION: Dehiscence of the wound of the axillary region. HISTORY OF PRESENT ILLNESS: The patient is a 30-year-old, black female, with history of hidradenitis who has had bilateral surgery of the axillary regions initially about one month ago which was complicated by dehiscence of the wound. The patient has had repeat surgery to clean and close the wounds. The patient has had a flap placed and most recently had a repeat surgery. The patient is referred for hyperbaric oxygen therapy in helping to heal failed flap of the axillary regions. PAST MEDICAL HISTORY: Essentially unremarkable except for hidradenitis. MEDICATIONS: The patient has been on Zofran, Benadryl, Colace, Tylenol, and Zosyn. She is currently on a MANAGER TRANSPORTATION PLANNING for pain control. PAST SURGICAL HISTORY: Significant for axillary surgery and debridement as well as reconstruction with skin flap as noted above. SOCIAL HISTORY: Patient is single. She lives in [place] and works as an assistant prosecuting attorney. She does not smoke and does not abuse alcohol. REVIEW OF SYSTEMS: General: Denies weight loss, fever, chills, or night sweats. HEENT: Denies headache or sinus problem. Pulmonary: Denies cough or sputum production. Cardiovascular: Denies chest pain or palpitations. Gastrointestinal: Denies dysphagia, dyspepsia, abdominal pain, nausea, vomiting, or diarrhea. Genitourinary: Denies dysuria or hematuria. PHYSICAL EXAMINATION: GENERAL: The patient is alert, oriented, pleasant female. VITAL SIGNS: Blood pressure is 154/82, heart rate 80, temperature afebrile. HEENT: Unremarkable. NECK: Supple. LUNGS: Without rales or wheezes. CARDIAC: S1 and S2 are normal without S3 or S4. Jugular venous pressure is normal. ABDOMEN: Soft and nontender. Bowel sounds are present. EXTREMITIES: Without cyanosis, clubbing, or edema. Axillary regions are painful, the wounds are covered. The patient is unable to move the arms due to recent surgery with restriction of movement. LABORATORY DATA: Reviewed. IMPRESSION: 1. Bilateral hidradenitis of the axillary region. 2. Status post skin resection and skin flap of the axillary region with dehiscence requiring repeat surgery, debridement and reconstruction. 3. Nonhealing flap of the axillary regions. PLAN: The patient would benefit from hyperbaric oxygen therapy to help healing of the wound and to prevent dehiscence and infection. She will probably will need 30 sessions of hyperbaric oxygen therapy at 2 atmospheres for two hour session each. Request will be submitted to the insurance company for approval. In the meantime, the patient will be continued on current medications including antibiotics and local care. Dr. Ndiaye, thank you for allowing us to participate in the care of this patient. We will be following with you as necessary. Luis Mcgowan M.D. DR: Lawanda JOB#: [id number] CC: Luis Mcgowan M.D.; Fax#: [phone]
[2016-05-12] MEDS ORDERED: Morphine Sulfate 2mg/ml Inj IVP PRN
[2016-05-12] MEDS ORDERED: Morphine Sulfate 4mg/ml Inj SUBQ PRN
[2016-05-12] MEDS: PCA shift volume MISC SCH (07:09)
[2016-05-12] MEDS: Nystatin Powder 100,000 units/gm 15gm TOPIC SCH ×2 (08:59→11:29)
[2016-05-12] MEDS: Heparin 5000 units/ml inj SUBQ SCH (08:59)
[2016-05-12] MEDS: Docusate 100mg cap ORAL SCH (08:59)
--- NOTE | 2016-05-12 08:59 | General Progress Note ---
Assessment/Plan Status: stable Assessment/Plan (1) Swelling of left upper extremity: us on admission of RUE neg for DVT ICD Codes: M79.89 - Other specified soft tissue disorders SNOMED: 574071694 (2) Axillary abscess ICD Codes: L02.419 - Cutaneous abscess of limb, unspecified SNOMED: 54698996 (3) Hidradenitis suppurativa ICD Codes: L73.2 - Hidradenitis suppurativa SNOMED: 76180820 Assessment/Plan s/p Debridement of bilateral axillary wounds and flap reclosure, POD 9 -s/p dressing change 05/04/16 -s/p wound closure 05/07/15 - Pain control - Blood cx ntd -tylenol -wound cx with four organisms - Start IV abx; Ceftriaxone-->Zosyn per ID -dc IVF - Supp care Subjective Date patient seen: May 12, 2016 Time patient seen: 08:57 ROS Limited/Unobtainable: No Constitutional: Reports: no symptoms HEENT: Reports: no symptoms Cardiovascular: Reports: no symptoms Respiratory: Reports: no symptoms Gastrointestinal/Abdominal: Reports: no symptoms Genitourinary: Reports: no symptoms Neurologic/Psychiatric: Reports: no symptoms Endocrine: Reports: no symptoms Hematologic/Lymphatic: Reports: no symptoms Allergies: Coded Allergies: FISH CONTAINING PRODUCTS (Verified Allergy, Intermediate, rash, 04/06/16) Uncoded Allergies: Tape (Adverse Reaction, Intermediate, Blisters , 05/01/16) Patient stated she gets Blisteres for any tape used for dressing. All Systems: reviewed and negative except above Subjective No acute o/n events Pt doing well. No complaints Objective Last 24 Hour Vital Signs Date Time Temp Pulse Resp B/P Pulse Ox O2 Delivery O2 Flow Rate FiO2 05/12/16 04:00 16 05/12/16 00:00 18 05/11/16 20:00 18 05/11/16 19:00 98.1 99 20 126/79 94 Room Air 05/11/16 16:00 18 05/11/16 16:00 97.9 98 20 129/71 97 Room Air 05/11/16 12:00 18 Intake and Output 05/11/16 05/12/16 19:00 07:00 Intake Total 540 ml 480 ml Output Total 16 ml Balance 524 ml 480 ml Intake Oral 540 ml 480 ml Drainage Total 16 ml # Voids 3 5 # Bowel Movements 1 1 Height (Feet): 5 Height (Inches): 7.00 Weight (Pounds): 200 Objective General: alert, cooperative, no distress, appears stated age Head: normocephalic, without obvious abnormality, atraumatic Eyes: conjunctivae/corneas clear. PERRL, EOM's intact Throat: lips, mucosa, and tongue normal. MMM Neck: supple, symmetrical, trachea midline, and no JVD Lungs: clear to auscultation bilaterally Heart: regular rate and rhythm, S1, S2 normal, no murmur, click, rub or gallop Abdomen: soft, non-tender, non-distended, bowel sounds normal; no masses or organomegaly Extremities: extremities normal, atraumatic, no cyanosis or edema Pulses: 2+ and symmetric Skin: skin color, texture, turgor normal; no rashes or lesions Neurologic: grossly normal, no focal deficits Lori Chavarria M.D. May 12, 2016 08:59
[2016-05-12] MEDS ORDERED: CEFDINIR300 MG PO (11:20)
[2016-05-12] MEDS ORDERED: LINEZOLID600 MG PO (11:21)
[2016-05-12 12:00] VITALS: BP 123/81
[2016-05-12] MEDS ORDERED: Lomotil 2.5mg tab ORAL ONE (13:00)
--- NOTE | 2016-05-12 17:51 | Discharge Summary ---
Discharge Summary Hospital Course Date of Admission May 01, 2016 at 16:58 Date of Discharge May 12, 2016 at 14:50 Admitting Diagnosis wound dehiscence Reason for Hospitalization: wound dehiscence HPI 30 y/o AA female from [place] with hx of hidradenitis s/p surgery 04/03/16 presents with acute onset of pain and increased wound drainage from her L axillary surgical site and found ot have wound dehiscence. Consultations Plastic surgery Infectious disease Procedures Debridement of bilateral axillary wounds and flap reclosure on 05/02/16 Wound closure 05/07/15 Hospital Course Pt underwent debridement of bilateral axillary wounds and flap reclosure on and wound closure 05/07/15. Pt tolerated the procedures well. Infectious disease was consulted for antibiotic optimization. Prior to discharge, pt was HD stable, tolerating PO, and ambulating w/o assistance. Discharge Medications New Medications: Cefdinir (Cefdinir) 300 Mg Capsule 300 MG PO BID for 7 Days, CAP Linezolid (Linezolid) 600 Mg Tablet 600 MG PO BID for 7 Days, TAB Continued Medications: Multivitamins* (Multivitamins*) 1 Each Tablet 1 TAB ORAL DAILY, TAB 0 Refills Discharge Condition Upon Discharge: stable Discharge Disposition Patient was discharged to Home (01) Discharge Diagnoses: (1) Axillary abscess (2) Swelling of left upper extremity Lori Chavarria M.D. May 12, 2016 17:51
--- NOTE | 2016-05-15 16:09 | Diagnostic Imaging Report ---
APPROVED REPORT CPT Code: 97779 Present Symptoms Upper Extremity Pain: Left Upper Extremity Edema: LEFT UPPER EXTREMITY: Venous imaging reveals patency of the internal jugular, subclavian, axillary and brachial veins. The cephalic and basilic veins are also patent. Doppler indicates normal spontaneous flow within these venous segments.
== END 2016-05-12 14:50 | disposition home or self-care (01) | DRG 904 ==
LOC: EDBEDREQ 16:15 → EMR 16:20 → 3E 16:58 → EDBEDREQ 17:16 → 3E 18:22
PROC: 0JDD0ZZ Extraction of Right Upper Arm Subcutaneous Tissue and Fascia, Open Approach (ICD-10-PCS; principal; 2016-05-02 11:00)
PROC: 0H86XZZ Division of Back Skin, External Approach (ICD-10-PCS; principal; 2016-05-02 11:00)
PROC: 0JDF0ZZ Extraction of Left Upper Arm Subcutaneous Tissue and Fascia, Open Approach (ICD-10-PCS; principal; 2016-05-02 11:00)
PROC: 0H85XZZ Division of Chest Skin, External Approach (ICD-10-PCS; principal; 2016-05-02 11:00)
PROC: 0H85XZZ Division of Chest Skin, External Approach (ICD-10-PCS; 2016-05-04)
PROC: 0JDD0ZZ Extraction of Right Upper Arm Subcutaneous Tissue and Fascia, Open Approach (ICD-10-PCS; 2016-05-04)
PROC: 0JDF0ZZ Extraction of Left Upper Arm Subcutaneous Tissue and Fascia, Open Approach (ICD-10-PCS; 2016-05-04)
PROC: 0JXF0ZZ Transfer Left Upper Arm Subcutaneous Tissue and Fascia, Open Approach (ICD-10-PCS; 2016-05-07)
PROC: 0JXD0ZZ Transfer Right Upper Arm Subcutaneous Tissue and Fascia, Open Approach (ICD-10-PCS; 2016-05-07)
DX: T81.31XA Disruption of external operation (surgical) wound, not elsewhere classified, initial encounter (principal); L02.412 Cutaneous abscess of left axilla; L02.411 Cutaneous abscess of right axilla; L73.2 Hidradenitis suppurativa; M79.89 Other specified soft tissue disorders; B96.20 Unspecified Escherichia coli [E. coli] as the cause of diseases classified elsewhere; B95.2 Enterococcus as the cause of diseases classified elsewhere; B96.89 Other specified bacterial agents as the cause of diseases classified elsewhere; D64.9 Anemia, unspecified
CPT/HCPCS: 36415; 80048; 81003; 81025; 85025; 85610; 85730; 86850; 86900; 86901; 87040; 87070; 87075; 87181; 87205; 93971; 94003; 94150; C9399; J2180; J2250; J2405; J2710